=== PATIENT | female | born 1955 | race Caucasian/White ===

== ENCOUNTER → 2016-09-16 | Outpatient (CLI) | payer BC | LOC: MW.CHFP 07:30 | PROVIDERS: ATTEND Physician Assistant | DX: E11.9 Type 2 diabetes mellitus without complications (principal) | CPT/HCPCS: 36415; 83036 ==

== ENCOUNTER 2017-10-17 02:24 | Emergency (ER) | payer BC ==
[2017-10-17] MEDS ORDERED: methylPREDNISolone Sodium Succinate 125 MG/2 ML SDV IM ONE (03:07)
[2017-10-17] MEDS ORDERED: diphenhydrAMINE 50 MG Cap PO ONE (03:08)
[2017-10-17] MEDS ORDERED: Famotidine 20 MG Tab PO ONE (03:08)
--- NOTE | 2017-10-17 03:09 | EDM.PDOC ---
ED HPI GENERAL MEDICAL PROBLEM - General Chief Complaint: Skin Complaint Stated Complaint: RASH Time Seen by Provider: 10/17/17 03:09 Source of Information: Reports: Patient - History of Present Illness INITIAL COMMENTS - FREE TEXT/NARRATIVE: HISTORY AND PHYSICAL: History of present illness: [Patient presents with urticarial rash which began earlier today she has been on an antibiotic for a week due to a folliculitis on her right cheek this is resolved She is on her last day of the antibiotic so we'll be stopping today anyway is unclear if this is the cause there are no other new dietary changes or clothing soaps etc. She has urticarial rash in inguinal folds across her abdomen as well as her breasts and on the backs of her calves small areas which is quite itchy and bothersome for the patient unable to sleep No fever nausea vomiting chills sweats lip swelling tongue swelling or oral pharyngeal edema ] Review of systems: As per history of present illness and below otherwise all systems reviewed and negative. Past medical history: As per history of present illness and as reviewed below otherwise noncontributory. Surgical history: As per history of present illness and as reviewed below otherwise noncontributory. Social history: No reported history of drug or alcohol abuse. Family history: As per history of present illness and as reviewed below otherwise noncontributory. Physical exam: HEENT: Atraumatic, normocephalic, pupils reactive, negative for conjunctival pallor or scleral icterus, mucous membranes moist, throat clear, neck supple, nontender, trachea midline. Lungs: Clear to auscultation, breath sounds equal bilaterally, chest nontender. Heart: S1S2, regular, negative for clicks, rubs, or JVD. Abdomen: Soft, nondistended, nontender. Negative for masses or hepatosplenomegaly. Negative for costovertebral tenderness. Pelvis: Stable nontender. Genitourinary: Deferred. Rectal: Deferred. Extremities: Atraumatic, negative for cords or calf pain. Neurovascular unremarkable. Neuro: Awake, alert, oriented. Cranial nerves II through XII unremarkable. Cerebellum unremarkable. Motor and sensory unremarkable throughout. Exam nonfocal. Skin as per history of present illness Diagnostics: [Clinical Patient refused lab Therapeutics: [Solu-Medrol 125 mg IM Benadryl 50 mg by mouth Famotidine 20 mg by mouth] Impression: [Urticarial rash] Definitive disposition and diagnosis as appropriate pending reevaluation and review of above. Generalized Pain Score (Numeric/FACES): 9 - Related Data Allergies Allergy/AdvReac Type Severity Reaction Status Date / Time No Known Allergies Allergy Verified 10/17/17 02:37 Home Meds: Home Meds Canagliflozin [Invokana] 300 mg PO DAILY 04/23/15 [History] Lisinopril 5 mg PO DAILY 04/23/15 [History] Venlafaxine [Effexor XR] 150 mg PO DAILY 04/23/15 [History] atorvaSTATin Calcium [Atorvastatin Calcium] 40 mg PO DAILY 04/23/15 [History] metFORMIN [Glucophage] 1,000 mg PO BIDMEALS 04/23/15 [History] Liraglutide [Victoza 3-Remy] mg .XX 10/17/17 [History] Past Medical History Cardiovascular History: Reports: High Cholesterol - Past Surgical History Other HEENT Surgeries/Procedures: esophogeal polypectomy Social & Family History - Family History Family Medical History: Noncontributory - Tobacco Use Smoking Status *Q: Never Smoker Second Hand Smoke Exposure: No - Caffeine Use Caffeine Use: Reports: Coffee - Recreational Drug Use Recreational Drug Use: No ED ROS GENERAL - Review of Systems Review Of Systems: ROS reveals no pertinent complaints other than HPI. ED EXAM, SKIN/RASH Exam: See Below Course - Vital Signs Last Recorded V/S: Last Vital Signs Temp 98.0 F 10/17/17 02:34 Pulse 80 10/17/17 02:34 Resp 20 10/17/17 02:34 BP 122/59 L 10/17/17 02:34 Pulse Ox 99 10/17/17 02:34 - Orders/Labs/Meds Meds: Medications Discontinued Medications Generic Name Dose Route Start Last Admin Trade Name Freq PRN Reason Stop Dose Admin Diphenhydramine HCl 50 mg 10/17/17 03:08 10/17/17 03:15 Benadryl PO 10/17/17 03:09 50 mg ONETIME ONE Administration Famotidine 20 mg 10/17/17 03:08 10/17/17 03:16 Pepcid PO 10/17/17 03:09 20 mg ONETIME ONE Administration Methylprednisolone Sodium Succinate 125 mg 10/17/17 03:07 10/17/17 03:16 Solu-Medrol IM 10/17/17 03:08 125 mg ONETIME ONE Administration Departure - Departure Time of Disposition: 03:55 Disposition: Home, Self-Care 01 Condition: Good Clinical Impression: Urticarial rash - Discharge Information Referrals: Marlon Oakley PA [Primary Care Provider] - Forms: ED Department Discharge Additional Instructions: Benadryl 50 mg every 4-6 hours by mouth as needed Zantac 150 milligrams by mouth twice daily as needed Medrol Dosepak as directed Follow-up with primary care in 2 weeks sooner as needed Consider allergy testing Return to emergency room if symptoms persist or worsen or new concerning symptoms develop\ The following information is given to patients seen in the emergency department who are being discharged to home. This information is to outline your options for follow-up care. We provide all patients seen in our emergency department with a follow-up referral. The need for follow-up, as well as the timing and circumstances, are variable depending upon the specifics of your emergency department visit. If you don't have a primary care physician on staff, we will provide you with a referral. We always advise you to contact your personal physician following an emergency department visit to inform them of the circumstance of the visit and for follow-up with them and/or the need for any referrals to a consulting specialist. The emergency department will also refer you to a specialist when appropriate. This referral assures that you have the opportunity for follow-up care with a specialist. All of these measure are taken in an effort to provide you with optimal care, which includes your follow-up. Under all circumstances we always encourage you to contact your private physician who remains a resource for coordinating your care. When calling for follow-up care, please make the office aware that this follow-up is from your recent emergency room visit. If for any reason you are refused follow-up, please contact the [facility] emergency department at and asked to speak to the emergency department charge nurse.
[2017-10-17 04:26] VITALS: BP 110/57
== END 2017-10-17 04:00 | disposition home or self-care (01) ==
LOC: MW.ED 02:24
DX: L50.9 Urticaria, unspecified (principal); E78.00 Pure hypercholesterolemia, unspecified; Z79.899 Other long term (current) drug therapy; Z79.84 Long term (current) use of oral hypoglycemic drugs
CPT/HCPCS: 96372; 99283; A9270; J2930

== ENCOUNTER 2017-10-19 06:40 | Inpatient (IN) | payer BC ==
[2017-10-19] MEDS ORDERED: Sodium Chloride 0.9% 1,000 ML IV ONE (06:46)
--- NOTE | 2017-10-19 06:49 | EDM.PDOC ---
<Jean Claude Monroe - Last Filed: 10/19/17 07:07> ED HPI GENERAL MEDICAL PROBLEM - General Chief Complaint: Allergic Reaction Stated Complaint: ALLERGIC REACTION Time Seen by Provider: 10/19/17 06:48 Source of Information: Reports: Patient - History of Present Illness INITIAL COMMENTS - FREE TEXT/NARRATIVE: HISTORY AND PHYSICAL: History of present illness: [ Patient presents to ER by private vehicle She was seen a couple days prior with urticarial rash on calves small area on abdomen and breasts, treated with Solu-Medrol at that time provided a Medrol Dosepak advised to take Benadryl and Zantac [id number] she states she has been doing this rash has spread to include limbs trunk neck she states it feels as if her throat is swelling on one side, her blood pressure is known to be lower than previous on arrival at 90 over 70 and tachycardic she does have faint stridor while listening to her neck is able to speak in full sentences ] Review of systems: As per history of present illness and below otherwise all systems reviewed and negative. Past medical history: As per history of present illness and as reviewed below otherwise noncontributory. Surgical history: As per history of present illness and as reviewed below otherwise noncontributory. Social history: No reported history of drug or alcohol abuse. Family history: As per history of present illness and as reviewed below otherwise noncontributory. Physical exam: HEENT: Atraumatic, normocephalic, pupils reactive, negative for conjunctival pallor or scleral icterus, mucous membranes moist, throat clear, neck supple, nontender, trachea midline. Faint stridor Lungs: Clear to auscultation, breath sounds equal bilaterally, chest nontender. Heart: S1S2, regular, negative for clicks, rubs, or JVD. Abdomen: Soft, nondistended, nontender. Negative for masses or hepatosplenomegaly. Negative for costovertebral tenderness. Pelvis: Stable nontender. Genitourinary: Deferred. Rectal: Deferred. Extremities: Atraumatic, negative for cords or calf pain. Neurovascular unremarkable. Neuro: Awake, alert, oriented. Cranial nerves II through XII unremarkable. Cerebellum unremarkable. Motor and sensory unremarkable throughout. Exam nonfocal. Diagnostics: [EDC CMP UA ] Therapeutics: [Liter normal saline bolus Solu-Medrol 125 mg IV Benadryl 50 mg IV Famotidine 20 mg by mouth epinephrine 0.5 mg IM Impression: Hypotension [ dermatitis ] Definitive disposition and diagnosis as appropriate pending reevaluation and review of above. skin Pain Score (Numeric/FACES): 10 - Related Data Allergies Allergy/AdvReac Type Severity Reaction Status Date / Time No Known Allergies Allergy Verified 10/19/17 06:49 Home Meds: Home Meds Canagliflozin [Invokana] 300 mg PO DAILY 04/23/15 [History] Lisinopril 5 mg PO DAILY 04/23/15 [History] Venlafaxine [Effexor XR] 150 mg PO DAILY 04/23/15 [History] atorvaSTATin Calcium [Atorvastatin Calcium] 40 mg PO DAILY 04/23/15 [History] metFORMIN [Glucophage] 1,000 mg PO BIDMEALS 04/23/15 [History] Liraglutide [Victoza 3-Remy] mg .XX 10/17/17 [History] Past Medical History Cardiovascular History: Reports: High Cholesterol - Past Surgical History Other HEENT Surgeries/Procedures: esophogeal polypectomy Social & Family History - Family History Family Medical History: Noncontributory - Caffeine Use Caffeine Use: Reports: Coffee Course - Vital Signs Last Recorded V/S: Last Vital Signs Temp 36.3 C 10/19/17 06:40 Pulse 117 H 10/19/17 08:03 Resp 18 10/19/17 08:03 BP 123/69 10/19/17 08:03 Pulse Ox 99 10/19/17 08:03 - Orders/Labs/Meds Orders: Active Orders 24 hr Category Date Time Status UA W/MICROSCOPIC [URIN] Stat Lab 10/19/17 08:00 Ordered Labs: Laboratory Tests 10/19/17 10/19/17 10/19/17 Range/Units 06:55 06:55 08:00 WBC 12.64 H (4.0-11.0) K/uL RBC 5.45 (4.30-5.90) M/uL Hgb 16.8 H (12.0-16.0) g/dL Hct 49.3 H (36.0-46.0) % MCV 90.5 (80.0-98.0) fL MCH 30.8 (27.0-32.0) pg MCHC 34.1 (31.0-37.0) g/dL RDW Std Deviation 46.2 (28.0-62.0) fl RDW Coeff of Jt 14 (11.0-15.0) % Plt Count 342 (150-400) K/uL MPV 11.30 (7.40-12.00) fL Neut % (Auto) 83.8 H (48.0-80.0) % Lymph % (Auto) 13.8 L (16.0-40.0) % [place] % (Auto) 2.1 (0.0-15.0) % Eos % (Auto) 0.2 (0.0-7.0) % Baso % (Auto) 0.1 (0.0-1.5) % Neut # (Auto) 10.6 H (1.4-5.7) K/uL Lymph # (Auto) 1.7 (0.6-2.4) K/uL [place] # (Auto) 0.3 (0.0-0.8) K/uL Eos # (Auto) 0.0 (0.0-0.7) K/uL Baso # (Auto) 0.0 (0.0-0.1) K/uL Nucleated RBC % 0.0 /100WBC Nucleated RBCs # 0 K/uL Sodium 131 L (136-145) mmol/L Potassium 5.5 H (3.5-5.1) mmol/L Chloride 99 (98-107) mmol/L Carbon Dioxide 21.3 (21.0-32.0) mmol/L BUN 36 H (7.0-18.0) mg/dL Creatinine 1.0 (0.6-1.0) mg/dL Est Cr Clr Drug Dosing 41.90 mL/min Estimated GFR (MDRD) 56.2 ml/min Glucose 277 H (74-106) mg/dL Calcium 9.2 (8.5-10.1) mg/dL Total Bilirubin 0.7 (0.2-1.0) mg/dL AST 40 H (15-37) IU/L ALT 22 (14-63) IU/L Alkaline Phosphatase 58 (46-116) U/L Total Protein 7.6 (6.4-8.2) g/dL Albumin 3.9 (3.4-5.0) g/dL Globulin 3.7 H (2.0-3.5) g/dL Albumin/Globulin Ratio 1.1 L (1.3-2.8) Urine Color YELLOW Urine Appearance CLEAR Urine pH 5.0 (5.0-8.0) Ur Specific [place] 1.015 (1.001-1.035) Urine Protein NEGATIVE (NEGATIVE) mg/dL Urine Glucose (UA) >=1000 (NEGATIVE) mg/dL Urine Ketones 15 H (NEGATIVE) mg/dL Urine Occult Blood NEGATIVE (NEGATIVE) Urine Nitrite NEGATIVE (NEGATIVE) Urine Bilirubin NEGATIVE (NEGATIVE) Urine Urobilinogen 0.2 (<2.0) EU/dL Ur Leukocyte Esterase NEGATIVE (NEGATIVE) Urine RBC 0-2 (0-2/HPF) Urine WBC 0-2 (0-5/HPF) Ur Epithelial Cells FEW (NONE-FEW) Urine Bacteria RARE (NEGATIVE) Meds: Medications Discontinued Medications Generic Name Dose Route Start Last Admin Trade Name Freq PRN Reason Stop Dose Admin Diphenhydramine HCl 50 mg 10/19/17 07:05 10/19/17 07:35 Benadryl IVPUSH 10/19/17 07:06 50 mg ONETIME ONE Administration Epinephrine HCl 0.5 mg 10/19/17 06:50 10/19/17 06:55 Adrenalin IM 10/19/17 06:51 0.5 mg ONETIME ONE Administration Famotidine 20 mg 10/19/17 07:06 10/19/17 07:35 Pepcid PO 10/19/17 07:07 20 mg ONETIME ONE Administration Sodium Chloride 1,000 mls @ 999 mls/hr 10/19/17 06:46 10/19/17 06:56 Normal Saline IV 10/19/17 07:46 999 mls/hr STAT ONE Administration Methylprednisolone Sodium Succinate 125 mg 10/19/17 06:53 10/19/17 07:03 Solu-Medrol IVPUSH 10/19/17 06:54 125 mg ONETIME ONE Administration Ondansetron HCl Confirm 10/19/17 07:21 10/19/17 07:28 Zofran Administered 10/19/17 07:22 Not Given Dose 4 mg .ROUTE .STK-MED ONE Ondansetron HCl 4 mg 10/19/17 07:25 10/19/17 07:30 Zofran IVPUSH 10/19/17 07:26 4 mg ONETIME ONE Administration Departure - Departure Disposition: Refer to Observation Clinical Impression: Acute allergic reaction - Discharge Information Referrals: PCP,None [Primary Care Provider] - <Quentin Ling - Last Filed: 10/19/17 08:39> ED HPI GENERAL MEDICAL PROBLEM - History of Present Illness INITIAL COMMENTS - FREE TEXT/NARRATIVE: Patient has had an unremarkable emergency department course vital signs have improved and remained stable she is without difficulty swallowing or breathing patient has a improved he urticarial rash I discussed with patient admission for observation she is in agreement case was discussed with hospitalist. ED ROS ALLERGIC REACTION - Review of Systems Review Of Systems: ROS reveals no pertinent complaints other than HPI. ED EXAM GENERAL NO PERIP PULSE - Physical Exam Exam: See Below (See dictation) Departure - Departure Time of Disposition: 08:39 Condition: Good
[2017-10-19] MEDS ORDERED: EPINEPHrine 1 MG/ML SDV IM ONE (06:50)
[2017-10-19] MEDS ORDERED: methylPREDNISolone Sodium Succinate 125 MG/2 ML SDV IVPUSH ONE ×2 (06:53→16:54)
[2017-10-19] MEDS ORDERED: diphenhydrAMINE 50 MG/ML SDV IVPUSH ONE (07:05)
[2017-10-19] MEDS ORDERED: Famotidine 20 MG Tab PO ONE (07:06)
[2017-10-19] MEDS ORDERED: Ondansetron 4 MG/2 ML SDV ONE (07:21)
[2017-10-19] MEDS ORDERED: Ondansetron 4 MG/2 ML SDV IVPUSH ONE (07:25)
[2017-10-19] MEDS ORDERED: Albuterol/Ipratropium 3.0-0.5 MG/3 ML Neb Soln NEB PRN (09:32)
[2017-10-19] MEDS ORDERED: Acetaminophen 325 MG Tab PO PRN (09:32)
[2017-10-19] MEDS ORDERED: Sodium Chloride 0.9% 2.5 ML Syringe FLUSH PRN (09:32)
[2017-10-19] MEDS ORDERED: Sodium Chloride 0.9% 10 ML Syringe FLUSH PRN (09:32)
[2017-10-19] MEDS: Lactated Ringers 1,000 ML IV SCH ×2 (10:36→18:30)
[2017-10-19] MEDS: methylPREDNISolone Sodium Succinate 40 MG/1 ML SDV IVPUSH SCH ×2 (10:36→16:26)
[2017-10-19] MEDS: diphenhydrAMINE 50 MG/ML SDV IVPUSH PRN ×2 (13:33→18:30)
[2017-10-19] MEDS: metFORMIN 500 MG Tab.ER PO SCH (16:26)
[2017-10-19] MEDS ORDERED: ZINC OXIDE TOP PRN (16:44)
[2017-10-19] MEDS ORDERED: MENTHOL TOP PRN (16:44)
[2017-10-19] MEDS ORDERED: Doxepin 25 MG Cap PO ONE (16:54)
[2017-10-19] MEDS: Venlafaxine 75 MG Cap.ER PO SCH (17:56)
--- NOTE | 2017-10-19 18:03 | PCM.HP ---
H&P History of Present Illness - General Date of Service: 10/19/17 Admit Problem/Dx: Admission Diagnosis/Problem Admission Diagnosis/Problem Anaphylactic reaction Source of Information: Patient - History of Present Illness Initial Comments - Free Text/Narative: Patient 61 years old female presented to Emergency room because she broke up into rash that started on night and was getting worse.she was seen in Er on Friday and was discharged home with Benadryl . In ER she was given solumedrol iv one dose and her rash felt better . she had some improvement in her rash on Friday , but the rash got worse on Friday and she had swelling of her throat and lips. She was at home on RUSSELL inhibitors, lisinopril and she just completed on a course of antibiotic does not know the name of it , which she received for 10 days for a facial infection after she pulled a facial hair with a tweezer Onset of Symptoms: Reports: Today Duration of Symptoms: Reports: Day(s): skin Pain Score (Numeric/FACES): 10 - Related Data Allergies/Adverse Reactions: Allergies Allergy/AdvReac Type Severity Reaction Status Date / Time Penicillins Allergy Hives Verified 10/19/17 18:13 Home Medications: Home Meds Canagliflozin [Invokana] 300 mg PO DAILY 04/23/15 [History] Lisinopril 5 mg PO DAILY 04/23/15 [History] Venlafaxine [Effexor XR] 150 mg PO DAILY 04/23/15 [History] atorvaSTATin Calcium [Atorvastatin Calcium] 40 mg PO BEDTIME 04/23/15 [History] metFORMIN [Glucophage] 1,000 mg PO BIDMEALS 04/23/15 [History] Liraglutide [Victoza 3-Remy] 1.8 mg SUBCUT DAILY 10/17/17 [History] methylPREDNISolone [Methylprednisolone] 4 mg PO 10/19/17 [History] Past Medical History Cardiovascular History: Reports: High Cholesterol Musculoskeletal History: Reports: Other (See Below) Other Musculoskeletal History: right hip pain Psychiatric History: Reports: Anxiety, Depression Endocrine/Metabolic History: Reports: Diabetes, Type II - Past Surgical History Other HEENT Surgeries/Procedures: esophogeal polypectomy Female Surgical History: Reports: Section, Hysterectomy Musculoskeletal Surgical History: Reports: Shoulder Surgery Social & Family History - Family History Family Medical History: Noncontributory - Tobacco Use Smoking Status *Q: Former Smoker Years of Tobacco use: 30 Used Tobacco, but Quit: Yes Month/Year Tobacco Last Used: 2010 - Caffeine Use Caffeine Use: Reports: Coffee - Recreational Drug Use Recreational Drug Use: No H&P Review of Systems - Review of Systems: Review Of Systems: See Below General: Reports: No Symptoms HEENT: Reports: No Symptoms Pulmonary: Reports: Shortness of Breath Cardiovascular: Reports: No Symptoms Gastrointestinal: Reports: No Symptoms Genitourinary: Reports: No Symptoms Musculoskeletal: Reports: No Symptoms Skin: Reports: Rash (maculo-papular rash) Psychiatric: Reports: No Symptoms Neurological: Reports: No Symptoms Hematologic/Lymphatic: Reports: No Symptoms Exam - Exam Exam: See Below - Vital Signs Vital Signs: Last Vital Signs Temp 98.5 F 10/19/17 16:00 Pulse 112 H 10/19/17 16:00 Resp 22 H 10/19/17 16:00 BP 124/67 10/19/17 16:00 Pulse Ox 98 10/19/17 16:00 Weight: 138 lb 3.677 oz - Exam General: Alert, Oriented HEENT: Conjunctiva Clear Neck: Supple, Trachea Midline, Full Range of Motion Lungs: Clear to Auscultation, Normal Respiratory Effort Cardiovascular: Regular Rate, Regular Rhythm, Tachycardia GI/Abdominal Exam: Normal Bowel Sounds, Soft, Non-Tender, No Organomegaly (Female) Exam: Normal External Exam Rectal (Female) Exam: Normal Exam Back Exam: Normal Inspection Extremities: Normal Inspection Skin: Warm, Dry, Intact, Rash (facial , chest back , legs arms , buttocks) Skin Alteration Location (Drawings Not To Scale): 1 - rash all over the body Neurological: Cranial Nerves Intact Neuro Extensive - Mental Status: Alert, Oriented x3 Neuro Extensive - Motor, Sensory, Reflexes: CN II-XII Intact Psychiatric: Alert, Normal Affect - Patient Data Lab Results Last 24 hrs: Laboratory Results - last 24 hr 10/19/17 10/19/17 10/19/17 Range/Units 06:55 06:55 08:00 WBC 12.64 H (4.0-11.0) K/uL RBC 5.45 (4.30-5.90) M/uL Hgb 16.8 H (12.0-16.0) g/dL Hct 49.3 H (36.0-46.0) % MCV 90.5 (80.0-98.0) fL MCH 30.8 (27.0-32.0) pg MCHC 34.1 (31.0-37.0) g/dL RDW Std Deviation 46.2 (28.0-62.0) fl RDW Coeff of Jt 14 (11.0-15.0) % Plt Count 342 (150-400) K/uL MPV 11.30 (7.40-12.00) fL Neut % (Auto) 83.8 H (48.0-80.0) % Lymph % (Auto) 13.8 L (16.0-40.0) % [place] % (Auto) 2.1 (0.0-15.0) % Eos % (Auto) 0.2 (0.0-7.0) % Baso % (Auto) 0.1 (0.0-1.5) % Neut # (Auto) 10.6 H (1.4-5.7) K/uL Lymph # (Auto) 1.7 (0.6-2.4) K/uL [place] # (Auto) 0.3 (0.0-0.8) K/uL Eos # (Auto) 0.0 (0.0-0.7) K/uL Baso # (Auto) 0.0 (0.0-0.1) K/uL Nucleated RBC % 0.0 /100WBC Nucleated RBCs # 0 K/uL Sodium 131 L (136-145) mmol/L Potassium 5.5 H (3.5-5.1) mmol/L Chloride 99 (98-107) mmol/L Carbon Dioxide 21.3 (21.0-32.0) mmol/L BUN 36 H (7.0-18.0) mg/dL Creatinine 1.0 (0.6-1.0) mg/dL Est Cr Clr Drug Dosing 41.90 mL/min Estimated GFR (MDRD) 56.2 ml/min Glucose 277 H (74-106) mg/dL Calcium 9.2 (8.5-10.1) mg/dL Total Bilirubin 0.7 (0.2-1.0) mg/dL AST 40 H (15-37) IU/L ALT 22 (14-63) IU/L Alkaline Phosphatase 58 (46-116) U/L Total Protein 7.6 (6.4-8.2) g/dL Albumin 3.9 (3.4-5.0) g/dL Globulin 3.7 H (2.0-3.5) g/dL Albumin/Globulin Ratio 1.1 L (1.3-2.8) Urine Color YELLOW Urine Appearance CLEAR Urine pH 5.0 (5.0-8.0) Ur Specific [place] 1.015 (1.001-1.035) Urine Protein NEGATIVE (NEGATIVE) mg/dL Urine Glucose (UA) >=1000 (NEGATIVE) mg/dL Urine Ketones 15 H (NEGATIVE) mg/dL Urine Occult Blood NEGATIVE (NEGATIVE) Urine Nitrite NEGATIVE (NEGATIVE) Urine Bilirubin NEGATIVE (NEGATIVE) Urine Urobilinogen 0.2 (<2.0) EU/dL Ur Leukocyte Esterase NEGATIVE (NEGATIVE) Urine RBC 0-2 (0-2/HPF) Urine WBC 0-2 (0-5/HPF) Ur Epithelial Cells FEW (NONE-FEW) Urine Bacteria RARE (NEGATIVE) Result Diagrams: 10/19/17 06:55 10/19/17 06:55 - Problem List (1) Anaphylactic reaction SNOMED Code(s): 57401504 ICD Code: T78.2XXA - ANAPHYLACTIC SHOCK, UNSPECIFIED, INITIAL ENCOUNTER Status: Acute Current Visit: Yes (2) Urticaria due to drug allergy SNOMED Code(s): 60220645 ICD Code: L50.0 - ALLERGIC URTICARIA Status: Acute Current Visit: Yes (3) Anaphylactic shock SNOMED Code(s): 827019834 ICD Code: T78.2XXA - ANAPHYLACTIC SHOCK, UNSPECIFIED, INITIAL ENCOUNTER Status: Acute Current Visit: Yes (4) Urticarial rash SNOMED Code(s): 923738535 ICD Code: L50.9 - URTICARIA, UNSPECIFIED Status: Acute Current Visit: No (5) Diabetes mellitus SNOMED Code(s): 46922499 ICD Code: E11.9 - TYPE 2 DIABETES MELLITUS WITHOUT COMPLICATIONS Status: Acute Current Visit: Yes (6) Hypertension SNOMED Code(s): 68560590 ICD Code: I10 - ESSENTIAL (PRIMARY) HYPERTENSION Status: Acute Current Visit: Yes Problem List Initiated/Reviewed/Updated: Yes Orders Last 24hrs: Active Orders 24 hr Category Date Time Status Patient Status [ADT] Stat ADT 10/19/17 08:39 Active Transfer Patient (Change bed) [ADT] Routine ADT 10/19/17 17:58 Ordered Blood Glucose Check, Bedside [RC] QIDACANDBED Care 10/19/17 09:32 Active Oxygen Therapy [RC] PRN Care 10/19/17 09:32 Active Pulse Oximetry [RC] CONTINUOUS Care 10/19/17 09:32 Active RT Aerosol Therapy [RC] ASDIRECTED Care 10/19/17 09:35 Active Transplant Case Manager Discontinue [Cardiac Monitoring Care 10/19/17 15:45 Active Discontinue] [RC] Click to Edit Telemetry Monitoring [Cardiac Monitoring] [RC] Q8H Care 10/19/17 09:44 Active Up ad [place] [RC] ASDIRECTED Care 10/19/17 09:32 Active Vital Signs [RC] Q4H Care 10/19/17 09:32 Active [employer] Diet [DIET] Diet 10/19/17 Lunch Active BASIC METABOLIC PANEL,BMP [CHEM] AM Lab 10/20/17 05:11 Ordered BASIC METABOLIC PANEL,BMP [CHEM] AM Lab 10/21/17 05:11 Ordered BASIC METABOLIC PANEL,BMP [CHEM] AM Lab 10/22/17 05:11 Ordered CBC W/O DIFF,HEMOGRAM [HEME] AM Lab 10/20/17 05:11 Ordered CBC W/O DIFF,HEMOGRAM [HEME] AM Lab 10/21/17 05:11 Ordered CBC W/O DIFF,HEMOGRAM [HEME] AM Lab 10/22/17 05:11 Ordered UA W/MICROSCOPIC [URIN] Stat Lab 10/19/17 08:00 Ordered Acetaminophen [Tylenol] Med 10/19/17 09:32 Active 650 mg PO Q4H PRN Albuterol/Ipratropium [DuoNeb 3.0-0.5 MG/3 ML] Med 10/19/17 09:32 Active 3 ml NEB Q4HRRT PRN Lactated Ringers [Ringers, Lactated] 1,000 ml Med 10/19/17 09:45 Active IV ASDIRECTED Menthol/Zinc Oxide [Gold Schultz Medicated Body Pwd] Med 10/19/17 16:44 Active 1 gm TOP BID PRN Patient's Own Medication [Ptom] Med 10/20/17 09:00 Active 1 each PO DAILY Patient's Own Medication [Ptom] Med 10/20/17 09:00 Active 1 each SUBCUT DAILY Sodium Chloride 0.9% [Saline Flush] Med 10/19/17 09:32 Active 10 ml FLUSH ASDIRECTED PRN Sodium Chloride 0.9% [Saline Flush] Med 10/19/17 09:32 Active 2.5 ml FLUSH ASDIRECTED PRN Venlafaxine [Effexor XR] Med 10/19/17 17:30 Active 150 mg PO DAILY atorvaSTATin [Lipitor] Med 10/19/17 21:00 Active 40 mg PO BEDTIME diphenhydrAMINE [Benadryl] Med 10/19/17 09:36 Active 50 mg IVPUSH Q6H PRN metFORMIN [Glucophage XR] Med 10/19/17 17:00 Active 1,000 mg PO BIDMEALS methylPREDNISolone Sod Succ [Solu-MEDROL] Med 10/19/17 09:45 Active 60 mg IVPUSH Q6H Peripheral IV Insertion Adult [OM.PC] Routine Oth 10/19/17 09:32 Ordered Sequential Compression Device [OM.PC] Per Unit Routine Oth 10/19/17 09:34 Ordered Resuscitation Status Routine Resus Stat 10/19/17 09:32 Ordered Medication Orders Acetaminophen (Tylenol) 650 mg PO Q4H PRN PRN Reason: Pain (Mild 1-3)/fever Albuterol/Ipratropium (Duoneb 3.0-0.5 Mg/3 Ml) 3 ml NEB Q4HRRT PRN PRN Reason: Shortness Of Breath/wheezing Atorvastatin Calcium (Lipitor) 40 mg PO BEDTIME CHRISTINA Calamine/Phenol (Gold Schultz Medicated Body Pwd) 1 gm TOP BID PRN PRN Reason: Itching Diphenhydramine HCl (Benadryl) 50 mg IVPUSH Q6H PRN PRN Reason: urticaria Last Admin: 10/19/17 13:33 Dose: 50 mg Lactated Ringer's (Ringers, Lactated) 1,000 mls @ 125 mls/hr IV ASDIRECTED CHRISTINA Last Admin: 10/19/17 10:36 Dose: 125 mls/hr Metformin HCl (Glucophage Xr) 1,000 mg PO BIDMEALS [facility] Last Admin: 10/19/17 16:26 Dose: 1,000 mg Methylprednisolone Sodium Succinate (Solu-Medrol) 60 mg IVPUSH Q6H [facility] Last Admin: 10/19/17 16:26 Dose: 60 mg Admin: 10/19/17 10:36 Dose: 60 mg Canagliflozin [ (Invokana] 300 Mg) 1 each PO DAILY [facility] Liraglutide 1.8 Mg 1 each SUBCUT DAILY [facility] Sodium Chloride (Saline Flush) 10 ml FLUSH ASDIRECTED PRN PRN Reason: Keep Vein Open Sodium Chloride (Saline Flush) 2.5 ml FLUSH ASDIRECTED PRN PRN Reason: Keep Vein Open Venlafaxine HCl (Effexor Xr) 150 mg PO DAILY [facility] Last Admin: 10/19/17 17:56 Dose: 150 mg \ Patient Bp in ER was low 90/70 and she was tachycardic and had stridor at neck auscultation Assessment and plan Anaphylactic shock and urticarial rash/ angioedema - will d/c lisinopril , will start solumedrol 60 mg iv q 6 h , Benadryl 50 mg iv q 6 h , will give patient menthol and zn oxide for itching and Doxepine 25 mg one dose for itchyng. will need to get from pharmacy the antibiotics she was on and document allergy. Will also hold lisinopril as it is the most often agent for angioedema . For DM - will continue patient with insulin on sliding scale and victoza. DVt prof- heparin sq Gi prof - protonix
[2017-10-19] MEDS ORDERED: diphenhydrAMINE 50 MG/ML SDV ONE (19:34)
[2017-10-19] MEDS: methylPREDNISolone Sodium Succinate 125 MG/2 ML SDV IVPUSH SCH (19:39)
[2017-10-19] MEDS: Insulin Aspart 100 Units/ML 3 ML Pen SUBCUT SCH (21:00)
[2017-10-19] MEDS: diphenhydrAMINE 50 MG/ML SDV IVPUSH SCH (21:33)
[2017-10-19] MEDS: atorvaSTATin 40 MG Tab PO SCH (21:33)
[2017-10-20] MEDS: methylPREDNISolone Sodium Succinate 125 MG/2 ML SDV IVPUSH SCH ×4 (02:12→19:30)
[2017-10-20] MEDS: diphenhydrAMINE 50 MG/ML SDV IVPUSH SCH ×6 (02:12→22:22)
[2017-10-20] MEDS: Lactated Ringers 1,000 ML IV SCH ×3 (02:23→18:07)
[2017-10-20 05:30] LABS: CHLORIDE,CL 106 mmol/L (98-107); SODIUM,NA 138 mmol/L (136-145)
[2017-10-20] MEDS: metFORMIN 500 MG Tab.ER PO SCH ×2 (07:38→17:01)
[2017-10-20] MEDS: Triamcinolone Acetonide 0.1% Crm 80 GM Tube TOP PRN (07:39)
[2017-10-20] MEDS: Insulin Aspart 100 Units/ML 3 ML Pen SUBCUT SCH ×2 (07:56→20:39)
[2017-10-20] MEDS: Canagliflozin [Invokana] 300 MG PO SCH (08:00)
[2017-10-20] MEDS: Venlafaxine 75 MG Cap.ER PO SCH (08:00)
--- NOTE | 2017-10-20 08:18 | PCM.PN ---
<Baluch,Wilfrid - Last Filed: 10/20/17 08:14> - General Info Date of Service: 10/20/17 Admission Dx/Problem (Free Text): Admission Diagnosis/Problem Admission Diagnosis/Problem Anaphylactic reaction Subjective Update: Patient still complaining of diffuse itching. Rash is still present all over body including her oral mucosa. She denies any sob but still has some mild discomfort with swallowing. Functional Status: Reports: Pain Controlled, Tolerating Diet - Review of Systems General: Reports: No Symptoms HEENT: Reports: Other (odynophagia ) Pulmonary: Reports: No Symptoms Cardiovascular: Reports: No Symptoms Gastrointestinal: Reports: No Symptoms Genitourinary: Reports: No Symptoms Musculoskeletal: Reports: No Symptoms Skin: Reports: Pruritis, Rash Neurological: Reports: No Symptoms Psychiatric: Reports: No Symptoms - Patient Data Vitals - Most Recent: Last Vital Signs Temp 36.6 C 10/20/17 04:00 Pulse 112 H 10/19/17 16:00 Resp 16 10/20/17 07:00 BP 140/71 10/20/17 07:00 Pulse Ox 93 L 10/20/17 07:00 Weight - Most Recent: 138 lb 3.677 oz I&O - Last 24 Hours: Intake & Output 10/19/17 10/20/17 10/20/17 22:59 06:59 14:59 Intake Total 1880 1388 Output Total 1150 300 Balance 1880 238 -300 Lab Results Last 24 Hours: Laboratory Results - last 24 hr 10/19/17 10/19/17 10/19/17 Range/Units 08:00 11:34 16:30 WBC (4.0-11.0) K/uL RBC (4.30-5.90) M/uL Hgb (12.0-16.0) g/dL Hct (36.0-46.0) % MCV (80.0-98.0) fL MCH (27.0-32.0) pg MCHC (31.0-37.0) g/dL RDW Std Deviation (28.0-62.0) fl RDW Coeff of Jt (11.0-15.0) % Plt Count (150-400) K/uL MPV (7.40-12.00) fL Nucleated RBC % /100WBC Nucleated RBCs # K/uL Sodium (136-145) mmol/L Potassium (3.5-5.1) mmol/L Chloride (98-107) mmol/L Carbon Dioxide (21.0-32.0) mmol/L BUN (7.0-18.0) mg/dL Creatinine (0.6-1.0) mg/dL Est Cr Clr Drug Dosing mL/min Estimated GFR (MDRD) ml/min Glucose (74-106) mg/dL POC Glucose 193 H 232 H (60-110) mg/dL Calcium (8.5-10.1) mg/dL Urine Color YELLOW Urine Appearance CLEAR Urine pH 5.0 (5.0-8.0) Ur Specific [place] 1.015 (1.001-1.035) Urine Protein NEGATIVE (NEGATIVE) mg/dL Urine Glucose (UA) >=1000 (NEGATIVE) mg/dL Urine Ketones 15 H (NEGATIVE) mg/dL Urine Occult Blood NEGATIVE (NEGATIVE) Urine Nitrite NEGATIVE (NEGATIVE) Urine Bilirubin NEGATIVE (NEGATIVE) Urine Urobilinogen 0.2 (<2.0) EU/dL Ur Leukocyte Esterase NEGATIVE (NEGATIVE) Urine RBC 0-2 (0-2/HPF) Urine WBC 0-2 (0-5/HPF) Ur Epithelial Cells FEW (NONE-FEW) Urine Bacteria RARE (NEGATIVE) 10/19/17 10/20/17 10/20/17 Range/Units 21:54 04:55 04:55 WBC 11.51 H (4.0-11.0) K/uL RBC 4.22 L (4.30-5.90) M/uL Hgb 12.6 (12.0-16.0) g/dL Hct 38.4 (36.0-46.0) % MCV 91.0 (80.0-98.0) fL MCH 29.9 (27.0-32.0) pg MCHC 32.8 (31.0-37.0) g/dL RDW Std Deviation 46.5 (28.0-62.0) fl RDW Coeff of Jt 14 (11.0-15.0) % Plt Count 286 (150-400) K/uL MPV 10.70 (7.40-12.00) fL Nucleated RBC % 0.0 /100WBC Nucleated RBCs # 0 K/uL Sodium 138 (136-145) mmol/L Potassium 5.2 H (3.5-5.1) mmol/L Chloride 106 (98-107) mmol/L Carbon Dioxide 25.7 (21.0-32.0) mmol/L BUN 27 H (7.0-18.0) mg/dL Creatinine 0.7 (0.6-1.0) mg/dL Est Cr Clr Drug Dosing 59.85 mL/min Estimated GFR (MDRD) > 60.0 ml/min Glucose 186 H (74-106) mg/dL POC Glucose 180 H (60-110) mg/dL Calcium 8.4 L (8.5-10.1) mg/dL Urine Color Urine Appearance Urine pH (5.0-8.0) Ur Specific [place] (1.001-1.035) Urine Protein (NEGATIVE) mg/dL Urine Glucose (UA) (NEGATIVE) mg/dL Urine Ketones (NEGATIVE) mg/dL Urine Occult Blood (NEGATIVE) Urine Nitrite (NEGATIVE) Urine Bilirubin (NEGATIVE) Urine Urobilinogen (<2.0) EU/dL Ur Leukocyte Esterase (NEGATIVE) Urine RBC (0-2/HPF) Urine WBC (0-5/HPF) Ur Epithelial Cells (NONE-FEW) Urine Bacteria (NEGATIVE) 10/20/17 10/20/17 Range/Units 06:35 07:41 WBC (4.0-11.0) K/uL RBC (4.30-5.90) M/uL Hgb (12.0-16.0) g/dL Hct (36.0-46.0) % MCV (80.0-98.0) fL MCH (27.0-32.0) pg MCHC (31.0-37.0) g/dL RDW Std Deviation (28.0-62.0) fl RDW Coeff of Jt (11.0-15.0) % Plt Count (150-400) K/uL MPV (7.40-12.00) fL Nucleated RBC % /100WBC Nucleated RBCs # K/uL Sodium (136-145) mmol/L Potassium (3.5-5.1) mmol/L Chloride (98-107) mmol/L Carbon Dioxide (21.0-32.0) mmol/L BUN (7.0-18.0) mg/dL Creatinine (0.6-1.0) mg/dL Est Cr Clr Drug Dosing mL/min Estimated GFR (MDRD) ml/min Glucose (74-106) mg/dL POC Glucose 159 H 152 H (60-110) mg/dL Calcium (8.5-10.1) mg/dL Urine Color Urine Appearance Urine pH (5.0-8.0) Ur Specific [place] (1.001-1.035) Urine Protein (NEGATIVE) mg/dL Urine Glucose (UA) (NEGATIVE) mg/dL Urine Ketones (NEGATIVE) mg/dL Urine Occult Blood (NEGATIVE) Urine Nitrite (NEGATIVE) Urine Bilirubin (NEGATIVE) Urine Urobilinogen (<2.0) EU/dL Ur Leukocyte Esterase (NEGATIVE) Urine RBC (0-2/HPF) Urine WBC (0-5/HPF) Ur Epithelial Cells (NONE-FEW) Urine Bacteria (NEGATIVE) Med Orders - Current: Current Medications Acetaminophen (Tylenol) 650 mg PO Q4H PRN PRN Reason: Pain (Mild 1-3)/fever Albuterol/Ipratropium (Duoneb 3.0-0.5 Mg/3 Ml) 3 ml NEB Q4HRRT PRN PRN Reason: Shortness Of Breath/wheezing Atorvastatin Calcium (Lipitor) 40 mg PO BEDTIME [facility] Last Admin: 10/19/17 21:33 Dose: 40 mg Calamine/Phenol (Gold Schultz Medicated Body Pwd) 1 gm TOP BID PRN PRN Reason: Itching Diphenhydramine HCl (Benadryl) 50 mg IVPUSH Q4H [facility] Last Admin: 10/20/17 06:16 Dose: 50 mg Lactated Ringer's (Ringers, Lactated) 1,000 mls @ 125 mls/hr IV ASDIRECTED [facility] Last Admin: 10/20/17 02:23 Dose: 125 mls/hr Insulin Aspart (Novolog) 0 unit SUBCUT ACBREAKFASTANDBED [facility]; Protocol Last Admin: 10/20/17 07:56 Dose: 2 unit Metformin HCl (Glucophage Xr) 1,000 mg PO BIDMEALS [facility] Last Admin: 10/20/17 07:38 Dose: 1,000 mg Methylprednisolone Sodium Succinate (Solu-Medrol) 125 mg IVPUSH Q6H [facility] Last Admin: 10/20/17 07:38 Dose: 125 mg Canagliflozin [ (Invokana] 300 Mg) 1 each PO DAILY [facility] Last Admin: 10/20/17 08:00 Dose: 1 each Liraglutide 1.8 Mg 1 each SUBCUT DAILY [facility] Last Admin: 10/20/17 08:10 Dose: Not Given Sodium Chloride (Saline Flush) 10 ml FLUSH ASDIRECTED PRN PRN Reason: Keep Vein Open Sodium Chloride (Saline Flush) 2.5 ml FLUSH ASDIRECTED PRN PRN Reason: Keep Vein Open Triamcinolone Acetonide (Kenalog 0.1% Crm) 0 gm TOP BID PRN PRN Reason: itching , rash Last Admin: 10/20/17 07:39 Dose: 1 dose Venlafaxine HCl (Effexor Xr) 150 mg PO DAILY [facility] Last Admin: 10/20/17 08:00 Dose: 150 mg Discontinued Medications Diphenhydramine HCl (Benadryl) 50 mg IVPUSH ONETIME ONE Stop: 10/19/17 07:06 Last Admin: 10/19/17 07:35 Dose: 50 mg Diphenhydramine HCl (Benadryl) 50 mg IVPUSH Q6H PRN PRN Reason: urticaria Last Admin: 10/19/17 18:30 Dose: 50 mg Diphenhydramine HCl (Benadryl) Confirm Administered Dose 50 mg .ROUTE .STK-MED ONE Stop: 10/19/17 19:35 Last Admin: 10/19/17 19:42 Dose: Not Given Doxepin HCl (Sinequan) 25 mg PO ONETIME ONE Stop: 10/19/17 16:55 Last Admin: 10/19/17 18:03 Dose: 25 mg Epinephrine HCl (Adrenalin) 0.5 mg IM ONETIME ONE Stop: 10/19/17 06:51 Last Admin: 10/19/17 06:55 Dose: 0.5 mg Famotidine (Pepcid) 20 mg PO ONETIME ONE Stop: 10/19/17 07:07 Last Admin: 10/19/17 07:35 Dose: 20 mg Sodium Chloride (Normal Saline) 1,000 mls @ 999 mls/hr IV STAT ONE Stop: 10/19/17 07:46 Last Admin: 10/19/17 06:56 Dose: 999 mls/hr Methylprednisolone Sodium Succinate (Solu-Medrol) 125 mg IVPUSH ONETIME ONE Stop: 10/19/17 06:54 Last Admin: 10/19/17 07:03 Dose: 125 mg Methylprednisolone Sodium Succinate (Solu-Medrol) 60 mg IVPUSH Q6H [facility] Last Admin: 10/19/17 16:26 Dose: 60 mg Methylprednisolone Sodium Succinate (Solu-Medrol) 125 mg IVPUSH ONETIME ONE Stop: 10/19/17 16:55 Last Admin: 10/19/17 17:23 Dose: Not Given Ondansetron HCl (Zofran) Confirm Administered Dose 4 mg .ROUTE .STK-MED ONE Stop: 10/19/17 07:22 Last Admin: 10/19/17 07:28 Dose: Not Given Ondansetron HCl (Zofran) 4 mg IVPUSH ONETIME ONE Stop: 10/19/17 07:26 Last Admin: 10/19/17 07:30 Dose: 4 mg Venlafaxine HCl (Effexor Xr) 150 mg PO DAILY [facility] - Exam General: Alert, Oriented, Cooperative, No Acute Distress HEENT: Pupils Equal, Pupils Reactive Neck: Supple Lungs: Clear to Auscultation, Normal Respiratory Effort Cardiovascular: Regular Rate, Regular Rhythm GI/Abdominal Exam: Normal Bowel Sounds, Soft, Non-Tender, No Distention Back Exam: Normal Inspection Extremities: Normal Inspection, Normal Range of Motion, Non-Tender, No Pedal Edema, Normal Capillary Refill Skin: Rash Neurological: No New Focal Deficit Psy/Mental Status: Alert, Normal Affect, Normal Mood - Problem List Review Problem List Initiated/Reviewed/Updated: Yes - Plan Plan:: as per hospitalist <Carlota Barbosa - Last Filed: 10/21/17 00:14> - General Info Subjective Update: PATIENT RASH SIGNIFICANTLY IMPROVED , MILD THROAT DISCOMFORT WITH SWALLOWING. - Patient Data Vitals - Most Recent: Last Vital Signs Temp 98 F 10/20/17 20:00 Pulse 112 H 10/19/17 16:00 Resp 16 10/20/17 20:00 BP 115/46 L 10/20/17 20:00 Pulse Ox 93 L 10/20/17 20:00 I&O - Last 24 Hours: Intake & Output 10/20/17 10/20/17 10/20/17 06:59 14:59 22:59 Intake Total 1388 1957 1556 Output Total 1150 1100 490 Balance 391 733 9545 Lab Results Last 24 Hours: Laboratory Results - last 24 hr 10/19/17 10/20/17 10/20/17 Range/Units 21:54 04:55 04:55 WBC 11.51 H (4.0-11.0) K/uL RBC 4.22 L (4.30-5.90) M/uL Hgb 12.6 (12.0-16.0) g/dL Hct 38.4 (36.0-46.0) % MCV 91.0 (80.0-98.0) fL MCH 29.9 (27.0-32.0) pg MCHC 32.8 (31.0-37.0) g/dL RDW Std Deviation 46.5 (28.0-62.0) fl RDW Coeff of Jt 14 (11.0-15.0) % Plt Count 286 (150-400) K/uL MPV 10.70 (7.40-12.00) fL Nucleated RBC % 0.0 /100WBC Nucleated RBCs # 0 K/uL Sodium 138 (136-145) mmol/L Potassium 5.2 H (3.5-5.1) mmol/L Chloride 106 (98-107) mmol/L Carbon Dioxide 25.7 (21.0-32.0) mmol/L BUN 27 H (7.0-18.0) mg/dL Creatinine 0.7 (0.6-1.0) mg/dL Est Cr Clr Drug Dosing 59.85 mL/min Estimated GFR (MDRD) > 60.0 ml/min Glucose 186 H (74-106) mg/dL POC Glucose 180 H (60-110) mg/dL Calcium 8.4 L (8.5-10.1) mg/dL 10/20/17 10/20/17 Range/Units 06:35 07:41 WBC (4.0-11.0) K/uL RBC (4.30-5.90) M/uL Hgb (12.0-16.0) g/dL Hct (36.0-46.0) % MCV (80.0-98.0) fL MCH (27.0-32.0) pg MCHC (31.0-37.0) g/dL RDW Std Deviation (28.0-62.0) fl RDW Coeff of Jt (11.0-15.0) % Plt Count (150-400) K/uL MPV (7.40-12.00) fL Nucleated RBC % /100WBC Nucleated RBCs # K/uL Sodium (136-145) mmol/L Potassium (3.5-5.1) mmol/L Chloride (98-107) mmol/L Carbon Dioxide (21.0-32.0) mmol/L BUN (7.0-18.0) mg/dL Creatinine (0.6-1.0) mg/dL Est Cr Clr Drug Dosing mL/min Estimated GFR (MDRD) ml/min Glucose (74-106) mg/dL POC Glucose 159 H 152 H (60-110) mg/dL Calcium (8.5-10.1) mg/dL Med Orders - Current: Current Medications Acetaminophen (Tylenol) 650 mg PO Q4H PRN PRN Reason: Pain (Mild 1-3)/fever Albuterol/Ipratropium (Duoneb 3.0-0.5 Mg/3 Ml) 3 ml NEB Q4HRRT PRN PRN Reason: Shortness Of Breath/wheezing Atorvastatin Calcium (Lipitor) 40 mg PO BEDTIME [facility] Last Admin: 10/19/17 21:33 Dose: 40 mg Calamine/Phenol (Gold Schultz Medicated Body Pwd) 1 gm TOP BID PRN PRN Reason: Itching Diphenhydramine HCl (Benadryl) 50 mg IVPUSH Q4H [facility] Last Admin: 10/20/17 18:02 Dose: 50 mg Doxepin HCl (Sinequan) 25 mg PO BEDTIME ONE Stop: 10/20/17 21:01 Lactated Ringer's (Ringers, Lactated) 1,000 mls @ 125 mls/hr IV ASDIRECTED [facility] Last Admin: 10/20/17 18:07 Dose: 125 mls/hr Insulin Aspart (Novolog) 0 unit SUBCUT ACBREAKFASTANDBED [facility]; Protocol Last Admin: 10/20/17 07:56 Dose: 2 unit Metformin HCl (Glucophage Xr) 1,000 mg PO BIDMEALS [facility] Last Admin: 10/20/17 17:01 Dose: 1,000 mg Methylprednisolone Sodium Succinate (Solu-Medrol) 125 mg IVPUSH Q6H [facility] Last Admin: 10/20/17 19:30 Dose: 125 mg Canagliflozin [ (Invokana] 300 Mg) 1 each PO DAILY [facility] Last Admin: 10/20/17 08:00 Dose: 1 each Liraglutide 1.8 Mg 1 each SUBCUT DAILY [facility] Last Admin: 10/20/17 08:10 Dose: Not Given Sodium Chloride (Saline Flush) 10 ml FLUSH ASDIRECTED PRN PRN Reason: Keep Vein Open Sodium Chloride (Saline Flush) 2.5 ml FLUSH ASDIRECTED PRN PRN Reason: Keep Vein Open Triamcinolone Acetonide (Kenalog 0.1% Crm) 0 gm TOP BID PRN PRN Reason: itching , rash Last Admin: 10/20/17 07:39 Dose: 1 dose Venlafaxine HCl (Effexor Xr) 150 mg PO DAILY [facility] Last Admin: 10/20/17 08:00 Dose: 150 mg Discontinued Medications Diphenhydramine HCl (Benadryl) 50 mg IVPUSH ONETIME ONE Stop: 10/19/17 07:06 Last Admin: 10/19/17 07:35 Dose: 50 mg Diphenhydramine HCl (Benadryl) 50 mg IVPUSH Q6H PRN PRN Reason: urticaria Last Admin: 10/19/17 18:30 Dose: 50 mg Diphenhydramine HCl (Benadryl) Confirm Administered Dose 50 mg .ROUTE .STK-MED ONE Stop: 10/19/17 19:35 Last Admin: 10/19/17 19:42 Dose: Not Given Doxepin HCl (Sinequan) 25 mg PO ONETIME ONE Stop: 10/19/17 16:55 Last Admin: 10/19/17 18:03 Dose: 25 mg Doxepin HCl (Sinequan) 25 mg PO ONETIME ONE Stop: 10/20/17 11:33 Last Admin: 10/20/17 12:19 Dose: 25 mg Epinephrine HCl (Adrenalin) 0.5 mg IM ONETIME ONE Stop: 10/19/17 06:51 Last Admin: 10/19/17 06:55 Dose: 0.5 mg Famotidine (Pepcid) 20 mg PO ONETIME ONE Stop: 10/19/17 07:07 Last Admin: 10/19/17 07:35 Dose: 20 mg Sodium Chloride (Normal Saline) 1,000 mls @ 999 mls/hr IV STAT ONE Stop: 10/19/17 07:46 Last Admin: 10/19/17 06:56 Dose: 999 mls/hr Methylprednisolone Sodium Succinate (Solu-Medrol) 125 mg IVPUSH ONETIME ONE Stop: 10/19/17 06:54 Last Admin: 10/19/17 07:03 Dose: 125 mg Methylprednisolone Sodium Succinate (Solu-Medrol) 60 mg IVPUSH Q6H [facility] Last Admin: 10/19/17 16:26 Dose: 60 mg Methylprednisolone Sodium Succinate (Solu-Medrol) 125 mg IVPUSH ONETIME ONE Stop: 10/19/17 16:55 Last Admin: 10/19/17 17:23 Dose: Not Given Ondansetron HCl (Zofran) Confirm Administered Dose 4 mg .ROUTE .STK-MED ONE Stop: 10/19/17 07:22 Last Admin: 10/19/17 07:28 Dose: Not Given Ondansetron HCl (Zofran) 4 mg IVPUSH ONETIME ONE Stop: 10/19/17 07:26 Last Admin: 10/19/17 07:30 Dose: 4 mg Venlafaxine HCl (Effexor Xr) 150 mg PO DAILY [facility] - Problem List & Annotations (1) Anaphylactic reaction SNOMED Code(s): 26829485 Code(s): T78.2XXA - ANAPHYLACTIC SHOCK, UNSPECIFIED, INITIAL ENCOUNTER Status: Acute Current Visit: Yes (2) Urticaria due to drug allergy SNOMED Code(s): 94100133 Code(s): L50.0 - ALLERGIC URTICARIA Status: Acute Current Visit: Yes (3) Anaphylactic shock SNOMED Code(s): 382745467 Code(s): T78.2XXA - ANAPHYLACTIC SHOCK, UNSPECIFIED, INITIAL ENCOUNTER Status: Acute Current Visit: Yes (4) Urticarial rash SNOMED Code(s): 177138224 Code(s): L50.9 - URTICARIA, UNSPECIFIED Status: Acute Current Visit: No (5) Diabetes mellitus SNOMED Code(s): 14892160 Code(s): E11.9 - TYPE 2 DIABETES MELLITUS WITHOUT COMPLICATIONS Status: Acute Current Visit: Yes (6) Hypertension SNOMED Code(s): 32625693 Code(s): I10 - ESSENTIAL (PRIMARY) HYPERTENSION Status: Acute Current Visit: Yes - Problem List Review Problem List Initiated/Reviewed/Updated: Yes - My Orders Last 24 Hours: My Active Orders 10/19/17 20:00 methylPREDNISolone Sod Succ [Solu-MEDROL] 125 mg IVPUSH Q6H 10/19/17 21:00 Insulin Aspart [NovoLOG] See Protocol SUBCUT ACBREAKFASTANDBED atorvaSTATin [Lipitor] 40 mg PO BEDTIME 10/19/17 22:00 diphenhydrAMINE [Benadryl] 50 mg IVPUSH Q4H 10/20/17 09:00 Patient's Own Medication [Ptom] 1 each PO DAILY Patient's Own Medication [Ptom] 1 each SUBCUT DAILY 10/20/17 21:00 Doxepin [SINEquan] 25 mg PO BEDTIME ONE 10/21/17 05:11 BASIC METABOLIC PANEL,BMP [CHEM] AM CBC W/O DIFF,HEMOGRAM [HEME] AM 10/22/17 05:11 BASIC METABOLIC PANEL,BMP [CHEM] AM CBC W/O DIFF,HEMOGRAM [HEME] AM - Plan Plan:: ANAPHYLACTIC REACTION, MEDICAMENTOUS RASH - WILL DOCUMENT ALLERGY TO BACTRIUM AND KEFLEX , AVOID RSUSELL INHIBITORS , ON HIGH DOSE OF STEROIDS: 125 MG IV Q 6 H , BENADRYL 50 MG IV Q 4 H , DOXEPIN 25 MG PO BID, CALAMINE LOTION , KENALOG 0.1% CREAM. DM: INSULIN ON SLIDING SCALE , HOLD VICTOZA HTN CONTROLLED - HOLD LISINOPRIL CONTINUE HOME MEDICATIONS, F/UP bp dvt PROFILAXIS: ENOXAPIN 40 MG SUBQ gI PROFILAXIS: PROTONIS 40 MG PO DAILY HLP:ATORVASTATIN 40 MG PO DAILY
[2017-10-20] MEDS ORDERED: Venlafaxine 75 MG Cap.ER PO SCH (09:00)
[2017-10-20] MEDS ORDERED: Doxepin 25 MG Cap PO ONE ×2 (11:32→21:00)
[2017-10-20] MEDS: atorvaSTATin 40 MG Tab PO SCH (20:36)
[2017-10-21] MEDS: Enoxaparin 40 MG/0.4 ML Syringe SUBCUT SCH ×2 (00:39→23:52)
[2017-10-21] MEDS: methylPREDNISolone Sodium Succinate 125 MG/2 ML SDV IVPUSH SCH ×2 (01:18→07:54)
[2017-10-21] MEDS: diphenhydrAMINE 50 MG/ML SDV IVPUSH SCH ×6 (01:18→22:56)
[2017-10-21] MEDS: Pantoprazole 40 MG Tab.CR PO SCH (06:29)
[2017-10-21] MEDS: Insulin Aspart 100 Units/ML 3 ML Pen SUBCUT SCH (06:36)
[2017-10-21 06:52] LABS: CHLORIDE,CL 107 mmol/L (98-107); SODIUM,NA 140 mmol/L (136-145)
[2017-10-21] MEDS: metFORMIN 500 MG Tab.ER PO SCH ×2 (07:54→17:30)
[2017-10-21] MEDS: Venlafaxine 75 MG Cap.ER PO SCH (08:00)
[2017-10-21] MEDS: Canagliflozin [Invokana] 300 MG PO SCH (08:00)
[2017-10-21] MEDS ORDERED: Docusate Sodium Liquid 100 MG/10 ML UD Cup PO ONE (09:19)
[2017-10-21] MEDS ORDERED: Magnesium Citrate Solution 296 ML Bottle PO ONE ×2 (09:20→09:21)
--- NOTE | 2017-10-21 09:30 | PCM.PN ---
- General Info Date of Service: 10/21/17 Admission Dx/Problem (Free Text): Admission Diagnosis/Problem Admission Diagnosis/Problem Anaphylactic reaction, drug rash Subjective Update: Patient c/o constipation , her rash improved but she still has significant itching 7/10 intensity just before the next dose of Benadryl which she gets 50 mg q 4 h. Her rash which is maculo-papular rash as per daughter got worse in the morning just before the next due dose of medication. Currently she is on High dose of steroids - pulse dose - 125 mg iv q 6 h , benadryl 50 mg - Review of Systems General: Reports: No Symptoms HEENT: Reports: No Symptoms Pulmonary: Reports: No Symptoms Cardiovascular: Reports: No Symptoms Gastrointestinal: Reports: Constipation Genitourinary: Reports: No Symptoms Musculoskeletal: Reports: No Symptoms Skin: Reports: Rash Neurological: Reports: No Symptoms Psychiatric: Reports: No Symptoms - Patient Data Vitals - Most Recent: Last Vital Signs Temp 98.2 F 10/21/17 08:00 Pulse 112 H 10/19/17 16:00 Resp 12 10/21/17 09:00 BP 128/63 10/21/17 09:00 Pulse Ox 94 L 10/21/17 09:00 Weight - Most Recent: 138 lb 3.677 oz I&O - Last 24 Hours: Intake & Output 10/20/17 10/21/17 10/21/17 22:59 06:59 14:59 Intake Total 1556 1300 240 Output Total 490 1200 600 Balance 1066 100 -360 Lab Results Last 24 Hours: Laboratory Results - last 24 hr 10/20/17 10/21/17 10/21/17 Range/Units 20:38 04:44 04:44 WBC 9.86 (4.0-11.0) K/uL RBC 3.82 L (4.30-5.90) M/uL Hgb 11.7 L (12.0-16.0) g/dL Hct 34.9 L (36.0-46.0) % MCV 91.4 (80.0-98.0) fL MCH 30.6 (27.0-32.0) pg MCHC 33.5 (31.0-37.0) g/dL RDW Std Deviation 47.5 (28.0-62.0) fl RDW Coeff of Jt 14 (11.0-15.0) % Plt Count 255 (150-400) K/uL MPV 11.30 (7.40-12.00) fL Nucleated RBC % 0.0 /100WBC Nucleated RBCs # 0 K/uL Sodium 140 (136-145) mmol/L Potassium 4.9 (3.5-5.1) mmol/L Chloride 107 (98-107) mmol/L Carbon Dioxide 27.3 (21.0-32.0) mmol/L BUN 27 H (7.0-18.0) mg/dL Creatinine 0.7 (0.6-1.0) mg/dL Est Cr Clr Drug Dosing 59.85 mL/min Estimated GFR (MDRD) > 60.0 ml/min Glucose 179 H (74-106) mg/dL POC Glucose 232 H (60-110) mg/dL Calcium 8.3 L (8.5-10.1) mg/dL 10/21/17 Range/Units 06:27 WBC (4.0-11.0) K/uL RBC (4.30-5.90) M/uL Hgb (12.0-16.0) g/dL Hct (36.0-46.0) % MCV (80.0-98.0) fL MCH (27.0-32.0) pg MCHC (31.0-37.0) g/dL RDW Std Deviation (28.0-62.0) fl RDW Coeff of Jt (11.0-15.0) % Plt Count (150-400) K/uL MPV (7.40-12.00) fL Nucleated RBC % /100WBC Nucleated RBCs # K/uL Sodium (136-145) mmol/L Potassium (3.5-5.1) mmol/L Chloride (98-107) mmol/L Carbon Dioxide (21.0-32.0) mmol/L BUN (7.0-18.0) mg/dL Creatinine (0.6-1.0) mg/dL Est Cr Clr Drug Dosing mL/min Estimated GFR (MDRD) ml/min Glucose (74-106) mg/dL POC Glucose 154 H (60-110) mg/dL Calcium (8.5-10.1) mg/dL Med Orders - Current: Current Medications Acetaminophen (Tylenol) 650 mg PO Q4H PRN PRN Reason: Pain (Mild 1-3)/fever Albuterol/Ipratropium (Duoneb 3.0-0.5 Mg/3 Ml) 3 ml NEB Q4HRRT PRN PRN Reason: Shortness Of Breath/wheezing Atorvastatin Calcium (Lipitor) 40 mg PO BEDTIME [facility] Last Admin: 10/20/17 20:36 Dose: 40 mg Calamine/Phenol (Gold Schultz Medicated Body Pwd) 1 gm TOP BID PRN PRN Reason: Itching Diphenhydramine HCl (Benadryl) 50 mg IVPUSH Q4H [facility] Last Admin: 10/21/17 06:29 Dose: 50 mg Enoxaparin Sodium (Lovenox) 40 mg SUBCUT Q24H [facility] Last Admin: 10/21/17 00:39 Dose: 40 mg Insulin Aspart (Novolog) 0 unit SUBCUT ACBREAKFASTANDBED [facility]; Protocol Last Admin: 10/21/17 06:36 Dose: 2 units Metformin HCl (Glucophage Xr) 1,000 mg PO BIDMEALS [facility] Last Admin: 10/21/17 07:54 Dose: 1,000 mg Methylprednisolone Sodium Succinate (Solu-Medrol) 125 mg IVPUSH Q6H [facility] Last Admin: 10/21/17 07:54 Dose: 125 mg Pantoprazole Sodium (Protonix) 40 mg PO ACBREAKFAST [facility] Last Admin: 10/21/17 06:29 Dose: 40 mg Canagliflozin [ (Invokana] 300 Mg) 1 each PO DAILY [facility] Last Admin: 10/21/17 08:00 Dose: 1 each Liraglutide 1.8 Mg 1 each SUBCUT DAILY [facility] Last Admin: 10/21/17 08:00 Dose: Not Given Sodium Chloride (Saline Flush) 10 ml FLUSH ASDIRECTED PRN PRN Reason: Keep Vein Open Sodium Chloride (Saline Flush) 2.5 ml FLUSH ASDIRECTED PRN PRN Reason: Keep Vein Open Triamcinolone Acetonide (Kenalog 0.1% Crm) 0 gm TOP BID PRN PRN Reason: itching , rash Last Admin: 10/20/17 07:39 Dose: 1 dose Venlafaxine HCl (Effexor Xr) 150 mg PO DAILY [facility] Last Admin: 10/21/17 08:00 Dose: 150 mg Discontinued Medications Diphenhydramine HCl (Benadryl) 50 mg IVPUSH ONETIME ONE Stop: 10/19/17 07:06 Last Admin: 10/19/17 07:35 Dose: 50 mg Diphenhydramine HCl (Benadryl) 50 mg IVPUSH Q6H PRN PRN Reason: urticaria Last Admin: 10/19/17 18:30 Dose: 50 mg Diphenhydramine HCl (Benadryl) Confirm Administered Dose 50 mg .ROUTE .STK-MED ONE Stop: 10/19/17 19:35 Last Admin: 10/19/17 19:42 Dose: Not Given Docusate Sodium (Colace 50 Mg/5 Ml Liquid) 200 mg PO ONETIME ONE Stop: 10/21/17 09:20 Doxepin HCl (Sinequan) 25 mg PO ONETIME ONE Stop: 10/19/17 16:55 Last Admin: 10/19/17 18:03 Dose: 25 mg Doxepin HCl (Sinequan) 25 mg PO ONETIME ONE Stop: 10/20/17 11:33 Last Admin: 10/20/17 12:19 Dose: 25 mg Doxepin HCl (Sinequan) 25 mg PO BEDTIME ONE Stop: 10/20/17 21:01 Last Admin: 10/20/17 20:36 Dose: 25 mg Epinephrine HCl (Adrenalin) 0.5 mg IM ONETIME ONE Stop: 10/19/17 06:51 Last Admin: 10/19/17 06:55 Dose: 0.5 mg Famotidine (Pepcid) 20 mg PO ONETIME ONE Stop: 10/19/17 07:07 Last Admin: 10/19/17 07:35 Dose: 20 mg Sodium Chloride (Normal Saline) 1,000 mls @ 999 mls/hr IV STAT ONE Stop: 10/19/17 07:46 Last Admin: 10/19/17 06:56 Dose: 999 mls/hr Lactated Ringer's (Ringers, Lactated) 1,000 mls @ 125 mls/hr IV ASDIRECTED [facility] Last Admin: 10/20/17 18:07 Dose: 125 mls/hr Magnesium Citrate (Citrate Of Magnesia) 30 ml PO ONETIME ONE Stop: 10/21/17 09:21 Magnesium Citrate (Citrate Of Magnesia) 200 ml PO ONETIME ONE Stop: 10/21/17 09:22 Methylprednisolone Sodium Succinate (Solu-Medrol) 125 mg IVPUSH ONETIME ONE Stop: 10/19/17 06:54 Last Admin: 10/19/17 07:03 Dose: 125 mg Methylprednisolone Sodium Succinate (Solu-Medrol) 60 mg IVPUSH Q6H [facility] Last Admin: 10/19/17 16:26 Dose: 60 mg Methylprednisolone Sodium Succinate (Solu-Medrol) 125 mg IVPUSH ONETIME ONE Stop: 10/19/17 16:55 Last Admin: 10/19/17 17:23 Dose: Not Given Ondansetron HCl (Zofran) Confirm Administered Dose 4 mg .ROUTE .STK-MED ONE Stop: 10/19/17 07:22 Last Admin: 10/19/17 07:28 Dose: Not Given Ondansetron HCl (Zofran) 4 mg IVPUSH ONETIME ONE Stop: 10/19/17 07:26 Last Admin: 10/19/17 07:30 Dose: 4 mg Venlafaxine HCl (Effexor Xr) 150 mg PO DAILY [facility] - Exam General: Alert, Oriented HEENT: Pupils Equal, Pupils Reactive Neck: Supple, Trachea Midline, No JVD Lungs: Clear to Auscultation, Normal Respiratory Effort Cardiovascular: Regular Rate, Regular Rhythm, No Murmurs GI/Abdominal Exam: Normal Bowel Sounds, Soft, Non-Tender, No Organomegaly Back Exam: Normal Inspection Extremities: Normal Inspection Skin: Warm, Dry, Rash (maculopapular rash) Neurological: No New Focal Deficit - Problem List & Annotations (1) Anaphylactic reaction SNOMED Code(s): 61641445 Code(s): T78.2XXA - ANAPHYLACTIC SHOCK, UNSPECIFIED, INITIAL ENCOUNTER Status: Acute Current Visit: Yes (2) Urticaria due to drug allergy SNOMED Code(s): 78548202 Code(s): L50.0 - ALLERGIC URTICARIA Status: Acute Current Visit: Yes (3) Anaphylactic shock SNOMED Code(s): 388548726 Code(s): T78.2XXA - ANAPHYLACTIC SHOCK, UNSPECIFIED, INITIAL ENCOUNTER Status: Acute Current Visit: Yes (4) Urticarial rash SNOMED Code(s): 221689942 Code(s): L50.9 - URTICARIA, UNSPECIFIED Status: Acute Current Visit: No (5) Diabetes mellitus SNOMED Code(s): 36170584 Code(s): E11.9 - TYPE 2 DIABETES MELLITUS WITHOUT COMPLICATIONS Status: Acute Current Visit: Yes (6) Hypertension SNOMED Code(s): 11551741 Code(s): I10 - ESSENTIAL (PRIMARY) HYPERTENSION Status: Acute Current Visit: Yes (7) Allergic drug rash SNOMED Code(s): 68526396, 487618093 Code(s): L27.0 - GEN SKIN ERUPTION DUE TO DRUGS AND MEDS TAKEN INTERNALLY Status: Acute Current Visit: Yes - Problem List Review Problem List Initiated/Reviewed/Updated: Yes - My Orders Last 24 Hours: My Active Orders 10/20/17 09:00 Patient's Own Medication [Ptom] 1 each PO DAILY Patient's Own Medication [Ptom] 1 each SUBCUT DAILY 10/21/17 00:00 Enoxaparin [Lovenox] 40 mg SUBCUT Q24H 10/21/17 07:30 Pantoprazole [ProTONIX] 40 mg PO ACBREAKFAST 10/22/17 05:11 BASIC METABOLIC PANEL,BMP [CHEM] AM CBC W/O DIFF,HEMOGRAM [HEME] AM - Plan Plan:: ANAPHYLACTIC REACTION, allergic drug rash - WILL DOCUMENT ALLERGY TO BACTRIUM AND KEFLEX , AVOID RUSSELL INHIBITORS ,avoid tylenol will taper steroids to 60 mg iv q 6 h and will observe , downgrade patient to medical surge , continue BENADRYL 50 MG IV Q 4 H , DOXEPIN 25 MG PO BID, CALAMINE LOTION , KENALOG 0.1% CREAM. DM: INSULIN ON SLIDING SCALE , HOLD VICTOZA, continue home mediacation Metformin 1000 mg po BID HTN CONTROLLED - HOLD LISINOPRIL CONTINUE HOME MEDICATIONS, F/UP BP dvt PROFILAXIS: ENOXAPIN 40 MG SUBQ gI PROFILAXIS: PROTONIx 40 MG PO DAILY HLP:ATORVASTATIN 40 MG PO DAILY Constipation due to anticolinergics- iv fluids and magnesium citrate 200 cc one dose and colace 200 mg 1 caps po
[2017-10-21] MEDS ORDERED: Docusate Sodium 100 MG Cap PO ONE (09:45)
[2017-10-21] MEDS: Lactated Ringers 1,000 ML IV SCH ×2 (09:46→17:35)
[2017-10-21] MEDS: Triamcinolone Acetonide 0.1% Crm 80 GM Tube TOP PRN (10:37)
[2017-10-21] MEDS: methylPREDNISolone Sodium Succinate 40 MG/1 ML SDV IVPUSH SCH ×2 (13:36→19:35)
[2017-10-21] MEDS ORDERED: Insulin Glargine,Human Rec. Analog 100 Units/ML 3 ML Pen SUBCUT ONE (21:00)
[2017-10-21] MEDS: atorvaSTATin 40 MG Tab PO SCH (22:56)
[2017-10-22] MEDS: methylPREDNISolone Sodium Succinate 40 MG/1 ML SDV IVPUSH SCH ×2 (01:45→08:33)
[2017-10-22] MEDS: Lactated Ringers 1,000 ML IV SCH (01:45)
[2017-10-22] MEDS: diphenhydrAMINE 50 MG/ML SDV IVPUSH SCH ×3 (01:46→10:23)
[2017-10-22 05:38] LABS: CHLORIDE,CL 106 mmol/L (98-107); SODIUM,NA 139 mmol/L (136-145)
[2017-10-22] MEDS: Pantoprazole 40 MG Tab.CR PO SCH (06:52)
[2017-10-22] MEDS: Insulin Aspart 100 Units/ML 3 ML Pen SUBCUT SCH ×3 (07:29→17:19)
[2017-10-22] MEDS: Triamcinolone Acetonide 0.1% Crm 80 GM Tube TOP PRN (08:23)
[2017-10-22] MEDS: Venlafaxine 75 MG Cap.ER PO SCH (08:32)
[2017-10-22] MEDS: metFORMIN 500 MG Tab.ER PO SCH ×2 (08:32→17:15)
[2017-10-22] MEDS: predniSONE 10 MG Tab PO SCH (10:51)
[2017-10-22] MEDS: Doxepin 25 MG Cap PO SCH ×2 (10:51→21:38)
[2017-10-22] MEDS: Canagliflozin [Invokana] 300 MG PO SCH (10:52)
[2017-10-22] MEDS ORDERED: methylPREDNISolone Sodium Succinate 125 MG/2 ML SDV IVPUSH SCH (14:00)
--- NOTE | 2017-10-22 19:49 | PCM.PN ---
- General Info Date of Service: 10/22/17 Admission Dx/Problem (Free Text): Admission Diagnosis/Problem Admission Diagnosis/Problem Anaphylactic reaction, drug rash Subjective Update: Patient rash improved , still her rash came scattered small spots on the body , and dissapeared by noon , she still has mild to moderate itching of skin - Review of Systems General: Reports: No Symptoms HEENT: Reports: No Symptoms, Rhinitis Cardiovascular: Reports: No Symptoms Gastrointestinal: Reports: No Symptoms Genitourinary: Reports: No Symptoms Musculoskeletal: Reports: No Symptoms Skin: Reports: Rash, Other (itching) Neurological: Reports: No Symptoms Psychiatric: Reports: No Symptoms - Patient Data Vitals - Most Recent: Last Vital Signs Temp 97.8 F 10/22/17 16:00 Pulse 72 10/22/17 16:00 Resp 16 10/22/17 16:00 BP 130/56 L 10/22/17 16:00 Pulse Ox 99 10/22/17 16:00 Weight - Most Recent: 138 lb 3.677 oz I&O - Last 24 Hours: Intake & Output 10/22/17 10/22/17 10/22/17 06:59 14:59 22:59 Intake Total 1599 1100 Output Total 1800 1400 Balance -201 -300 Lab Results Last 24 Hours: Laboratory Results - last 24 hr 10/21/17 10/22/17 10/22/17 Range/Units 21:55 04:55 04:55 WBC 10.81 (4.0-11.0) K/uL RBC 3.89 L (4.30-5.90) M/uL Hgb 11.8 L (12.0-16.0) g/dL Hct 35.3 L (36.0-46.0) % MCV 90.7 (80.0-98.0) fL MCH 30.3 (27.0-32.0) pg MCHC 33.4 (31.0-37.0) g/dL RDW Std Deviation 46.2 (28.0-62.0) fl RDW Coeff of Jt 14 (11.0-15.0) % Plt Count 256 (150-400) K/uL MPV 11.10 (7.40-12.00) fL Nucleated RBC % 0.0 /100WBC Nucleated RBCs # 0 K/uL Sodium 139 (136-145) mmol/L Potassium 4.5 (3.5-5.1) mmol/L Chloride 106 (98-107) mmol/L Carbon Dioxide 27.3 (21.0-32.0) mmol/L BUN 24 H (7.0-18.0) mg/dL Creatinine 0.7 (0.6-1.0) mg/dL Est Cr Clr Drug Dosing 59.85 mL/min Estimated GFR (MDRD) > 60.0 ml/min Glucose 185 H (74-106) mg/dL POC Glucose 263 H (60-110) mg/dL Calcium 8.0 L (8.5-10.1) mg/dL 10/22/17 10/22/17 10/22/17 Range/Units 06:02 10:58 15:54 WBC (4.0-11.0) K/uL RBC (4.30-5.90) M/uL Hgb (12.0-16.0) g/dL Hct (36.0-46.0) % MCV (80.0-98.0) fL MCH (27.0-32.0) pg MCHC (31.0-37.0) g/dL RDW Std Deviation (28.0-62.0) fl RDW Coeff of Jt (11.0-15.0) % Plt Count (150-400) K/uL MPV (7.40-12.00) fL Nucleated RBC % /100WBC Nucleated RBCs # K/uL Sodium (136-145) mmol/L Potassium (3.5-5.1) mmol/L Chloride (98-107) mmol/L Carbon Dioxide (21.0-32.0) mmol/L BUN (7.0-18.0) mg/dL Creatinine (0.6-1.0) mg/dL Est Cr Clr Drug Dosing mL/min Estimated GFR (MDRD) ml/min Glucose (74-106) mg/dL POC Glucose 142 H 217 H 224 H (60-110) mg/dL Calcium (8.5-10.1) mg/dL Med Orders - Current: Current Medications Acetaminophen (Tylenol) 650 mg PO Q4H PRN PRN Reason: Pain (Mild 1-3)/fever Albuterol/Ipratropium (Duoneb 3.0-0.5 Mg/3 Ml) 3 ml NEB Q4HRRT PRN PRN Reason: Shortness Of Breath/wheezing Atorvastatin Calcium (Lipitor) 40 mg PO BEDTIME [facility] Last Admin: 10/21/17 22:56 Dose: 40 mg Calamine/Phenol (Gold Schultz Medicated Body Pwd) 1 gm TOP BID PRN PRN Reason: Itching Diphenhydramine HCl (Benadryl) 50 mg PO Q6H PRN PRN Reason: Itching Doxepin HCl (Sinequan) 25 mg PO BID [facility] Last Admin: 10/22/17 10:51 Dose: 25 mg Enoxaparin Sodium (Lovenox) 40 mg SUBCUT Q24H [facility] Last Admin: 10/21/17 23:52 Dose: 40 mg Insulin Aspart (Novolog) 0 unit SUBCUT TIDAC [facility]; Protocol Last Admin: 10/22/17 17:19 Dose: 4 units Metformin HCl (Glucophage Xr) 1,000 mg PO BIDMEALS [facility] Last Admin: 10/22/17 17:15 Dose: 1,000 mg Pantoprazole Sodium (Protonix) 40 mg PO ACBREAKFAST [facility] Last Admin: 10/22/17 06:52 Dose: 40 mg Canagliflozin [ (Invokana] 300 Mg) 1 each PO DAILY [facility] Last Admin: 10/22/17 10:52 Dose: 1 each Liraglutide 1.8 Mg 1 each SUBCUT DAILY [facility] Last Admin: 10/22/17 10:22 Dose: Not Given Prednisone (Prednisone) 50 mg PO DAILY [facility] Last Admin: 10/22/17 10:51 Dose: 50 mg Sodium Chloride (Saline Flush) 10 ml FLUSH ASDIRECTED PRN PRN Reason: Keep Vein Open Sodium Chloride (Saline Flush) 2.5 ml FLUSH ASDIRECTED PRN PRN Reason: Keep Vein Open Triamcinolone Acetonide (Kenalog 0.1% Crm) 0 gm TOP BID PRN PRN Reason: itching , rash Last Admin: 10/22/17 08:23 Dose: 1 dose Venlafaxine HCl (Effexor Xr) 150 mg PO DAILY [facility] Last Admin: 10/22/17 08:32 Dose: 150 mg Discontinued Medications Diphenhydramine HCl (Benadryl) 50 mg IVPUSH ONETIME ONE Stop: 10/19/17 07:06 Last Admin: 10/19/17 07:35 Dose: 50 mg Diphenhydramine HCl (Benadryl) 50 mg IVPUSH Q6H PRN PRN Reason: urticaria Last Admin: 10/19/17 18:30 Dose: 50 mg Diphenhydramine HCl (Benadryl) 50 mg IVPUSH Q4H [facility] Last Admin: 10/22/17 10:23 Dose: 50 mg Diphenhydramine HCl (Benadryl) Confirm Administered Dose 50 mg .ROUTE .STK-MED ONE Stop: 10/19/17 19:35 Last Admin: 10/19/17 19:42 Dose: Not Given Docusate Sodium (Colace 50 Mg/5 Ml Liquid) 200 mg PO ONETIME ONE Stop: 10/21/17 09:20 Last Admin: 10/21/17 09:42 Dose: Not Given Docusate Sodium (Colace) 200 mg PO ONETIME ONE Stop: 10/21/17 09:46 Last Admin: 10/21/17 09:45 Dose: 200 mg Doxepin HCl (Sinequan) 25 mg PO ONETIME ONE Stop: 10/19/17 16:55 Last Admin: 10/19/17 18:03 Dose: 25 mg Doxepin HCl (Sinequan) 25 mg PO ONETIME ONE Stop: 10/20/17 11:33 Last Admin: 10/20/17 12:19 Dose: 25 mg Doxepin HCl (Sinequan) 25 mg PO BEDTIME ONE Stop: 10/20/17 21:01 Last Admin: 10/20/17 20:36 Dose: 25 mg Epinephrine HCl (Adrenalin) 0.5 mg IM ONETIME ONE Stop: 10/19/17 06:51 Last Admin: 10/19/17 06:55 Dose: 0.5 mg Famotidine (Pepcid) 20 mg PO ONETIME ONE Stop: 10/19/17 07:07 Last Admin: 10/19/17 07:35 Dose: 20 mg Sodium Chloride (Normal Saline) 1,000 mls @ 999 mls/hr IV STAT ONE Stop: 10/19/17 07:46 Last Admin: 10/19/17 06:56 Dose: 999 mls/hr Lactated Ringer's (Ringers, Lactated) 1,000 mls @ 125 mls/hr IV ASDIRECTED [facility] Last Admin: 10/20/17 18:07 Dose: 125 mls/hr Lactated Ringer's (Ringers, Lactated) 1,000 mls @ 125 mls/hr IV ASDIRECTED [facility] Last Admin: 10/22/17 01:45 Dose: 125 mls/hr Insulin Aspart (Novolog) 0 unit SUBCUT ACBREAKFASTANDBED [facility]; Protocol Last Admin: 10/21/17 06:36 Dose: 2 units Insulin Glargine (Lantus Solostar) 12 units SUBCUT BEDTIME ONE Stop: 10/21/17 21:01 Last Admin: 10/21/17 22:56 Dose: 12 units Magnesium Citrate (Citrate Of Magnesia) 30 ml PO ONETIME ONE Stop: 10/21/17 09:21 Magnesium Citrate (Citrate Of Magnesia) 200 ml PO ONETIME ONE Stop: 10/21/17 09:22 Last Admin: 10/21/17 09:45 Dose: 200 ml Methylprednisolone Sodium Succinate (Solu-Medrol) 125 mg IVPUSH ONETIME ONE Stop: 10/19/17 06:54 Last Admin: 10/19/17 07:03 Dose: 125 mg Methylprednisolone Sodium Succinate (Solu-Medrol) 60 mg IVPUSH Q6H [facility] Last Admin: 10/19/17 16:26 Dose: 60 mg Methylprednisolone Sodium Succinate (Solu-Medrol) 125 mg IVPUSH ONETIME ONE Stop: 10/19/17 16:55 Last Admin: 10/19/17 17:23 Dose: Not Given Methylprednisolone Sodium Succinate (Solu-Medrol) 125 mg IVPUSH Q6H [facility] Last Admin: 10/21/17 07:54 Dose: 125 mg Methylprednisolone Sodium Succinate (Solu-Medrol) 60 mg IVPUSH Q6H [facility] Last Admin: 10/22/17 08:33 Dose: 60 mg Methylprednisolone Sodium Succinate (Solu-Medrol) 60 mg IVPUSH Q6H [facility] Ondansetron HCl (Zofran) Confirm Administered Dose 4 mg .ROUTE .STK-MED ONE Stop: 10/19/17 07:22 Last Admin: 10/19/17 07:28 Dose: Not Given Ondansetron HCl (Zofran) 4 mg IVPUSH ONETIME ONE Stop: 10/19/17 07:26 Last Admin: 10/19/17 07:30 Dose: 4 mg Venlafaxine HCl (Effexor Xr) 150 mg PO DAILY [facility] - Exam Quality Assessment: Supplemental Oxygen General: Alert, Oriented HEENT: Pupils Equal, Pupils Reactive, EOMI Neck: Supple, Trachea Midline, No JVD, No Thyromegaly Lungs: Clear to Auscultation, Normal Respiratory Effort Cardiovascular: Regular Rate, Regular Rhythm, No Murmurs GI/Abdominal Exam: Normal Bowel Sounds, Soft, Non-Tender, No Organomegaly Back Exam: Normal Inspection Extremities: Normal Inspection Skin: Warm, Dry, Rash Neurological: No New Focal Deficit Psy/Mental Status: Alert, Normal Affect, Normal Mood - Problem List & Annotations (1) Anaphylactic reaction SNOMED Code(s): 20524516 Code(s): T78.2XXA - ANAPHYLACTIC SHOCK, UNSPECIFIED, INITIAL ENCOUNTER Status: Acute Current Visit: Yes (2) Urticaria due to drug allergy SNOMED Code(s): 57306305 Code(s): L50.0 - ALLERGIC URTICARIA Status: Acute Current Visit: Yes (3) Anaphylactic shock SNOMED Code(s): 476577896 Code(s): T78.2XXA - ANAPHYLACTIC SHOCK, UNSPECIFIED, INITIAL ENCOUNTER Status: Acute Current Visit: Yes (4) Urticarial rash SNOMED Code(s): 368033607 Code(s): L50.9 - URTICARIA, UNSPECIFIED Status: Acute Current Visit: No (5) Diabetes mellitus SNOMED Code(s): 78433371 Code(s): E11.9 - TYPE 2 DIABETES MELLITUS WITHOUT COMPLICATIONS Status: Acute Current Visit: Yes (6) Hypertension SNOMED Code(s): 26272851 Code(s): I10 - ESSENTIAL (PRIMARY) HYPERTENSION Status: Acute Current Visit: Yes (7) Allergic drug rash SNOMED Code(s): 38383057, 592604291 Code(s): L27.0 - GEN SKIN ERUPTION DUE TO DRUGS AND MEDS TAKEN INTERNALLY Status: Acute Current Visit: Yes (8) Acute allergic reaction SNOMED Code(s): 596833635 Code(s): T78.40XA - ALLERGY, UNSPECIFIED, INITIAL ENCOUNTER Status: Acute Current Visit: Yes - Problem List Review Problem List Initiated/Reviewed/Updated: Yes - My Orders Last 24 Hours: My Active Orders 10/22/17 07:30 Insulin Aspart [NovoLOG] See Protocol SUBCUT TIDAC 10/22/17 10:26 diphenhydrAMINE [Benadryl] 50 mg PO Q6H PRN 10/22/17 10:30 Doxepin [SINEquan] 25 mg PO BID predniSONE 50 mg PO DAILY - Plan Plan:: ANAPHYLACTIC REACTION, allergic drug rash - WILL DOCUMENT ALLERGY TO BACTRIUM AND KEFLEX , AVOID RUSSELL INHIBITORS ,avoid tylenol will taper steroids to prednisone 50 mg po daily and will observe , , continue BENADRYL 50 MG po q 6 h , DOXEPIN 25 MG PO BID, CALAMINE LOTION , KENALOG 0.1% CREAM. DM: INSULIN ON SLIDING SCALE , HOLD VICTOZA, continue home medication Metformin 1000 mg po BID HTN CONTROLLED - HOLD LISINOPRIL CONTINUE HOME MEDICATIONS, F/UP BP dvt PROFILAXIS: ENOXAPIN 40 MG SUBQ gI PROFILAXIS: PROTONIx 40 MG PO DAILY HLP:ATORVASTATIN 40 MG PO DAILY Constipation due to anticolinergics- resolved with magnesium citrate
[2017-10-22] MEDS: diphenhydrAMINE 50 MG Cap PO PRN (21:38)
[2017-10-22] MEDS: atorvaSTATin 40 MG Tab PO SCH (21:39)
[2017-10-23] MEDS: Enoxaparin 40 MG/0.4 ML Syringe SUBCUT SCH (00:43)
[2017-10-23] MEDS: Pantoprazole 40 MG Tab.CR PO SCH (06:30)
[2017-10-23] MEDS: Insulin Aspart 100 Units/ML 3 ML Pen SUBCUT SCH ×2 (06:34→12:12)
[2017-10-23] MEDS: diphenhydrAMINE 50 MG Cap PO PRN (06:46)
[2017-10-23] MEDS: predniSONE 10 MG Tab PO SCH (07:59)
[2017-10-23] MEDS: metFORMIN 500 MG Tab.ER PO SCH (07:59)
[2017-10-23] MEDS: Doxepin 25 MG Cap PO SCH (08:00)
[2017-10-23] MEDS: Venlafaxine 75 MG Cap.ER PO SCH (08:00)
[2017-10-23] MEDS: Canagliflozin [Invokana] 300 MG PO SCH (08:04)
[2017-10-23] MEDS ORDERED: Insulin Glargine,Human Rec. Analog 100 Units/ML 3 ML Pen SUBCUT SCH (09:00)
[2017-10-23 11:57] VITALS: BP 162/83
--- NOTE | 2017-10-23 14:38 | PCM.DCSUM1 ---
Discharge Summary - Hospital Course Free Text/Narrative:: Patient 61 y old female admitted in the hospital with anaphylactic reaction and generalized body rash maculopapular, was admitted in ICU for observation and she received in emergency room epinephrine iv and solumedrol 125 mg iv , she was tachycardic on the floor , had facial swelling and she had hypotension at admission . She was continued on the floor with Solu-Medrol 60 mg IV every 6 hours and Benadryl 50 mg IV every 6 hours which were increased to 125 mg IV every 6 hours due concern of worsening symptoms and no improvement, and Benadryl was increased to 50 mg every 4 hours. Patient was also given topical calamine solution for itching to apply on the rash , cold compresses , she had intractable itching and doxepin 25 mg by mouth twice a day for pruritus. The rash improved day by day, but mostly in the morning new lesions appeared just before vandana next dose Medication was tapered and her rash disappeared compleatedly in the day of the discharge and patient was still discharged home with prednisone 50 mg by mouth daily for another 2 days because she had itching rated 4 in 10 in intensity and she also received Benadryl 50 mg by mouth every 6 hours prn for another 2-3 days. Diagnostic of discharge anaphylactic reaction, allergic drug reaction, patient had documented in the chart allergy to cephalexin and Bactrium , she was also told to stop lisinopril , patient to follow-up with her primary care physician and with the allergologyst to have further testing. HPI Initial Comments: Patient 61 years old female presented to Emergency room because she broke up into rash on night and was getting worse.She was seen in ER on Friday and was discharged home with Benadryl . In ER, on Friday she was given solumedrol iv one dose and her rash felt better . She had some improvement in her rash on Friday , but the rash got worse on Friday and she had swelling of her throat and lips and came back to ER. She was at home on RUSSELL inhibitors, lisinopril and she just completed on a course of antibiotics: keflex and Bactrium which she received for a duration of 10 days for a facial infection , after she pulled a facial hair with a tweezer - Discharge Data Discharge Date: 10/23/17 Discharge Disposition: Home, Self-Care 01 Condition: Stable - Discharge Diagnosis/Problem(s) (1) Anaphylactic reaction SNOMED Code(s): 09221524 ICD Code: T78.2XXA - ANAPHYLACTIC SHOCK, UNSPECIFIED, INITIAL ENCOUNTER Status: Acute (2) Urticaria due to drug allergy SNOMED Code(s): 51590650 ICD Code: L50.0 - ALLERGIC URTICARIA Status: Acute (3) Anaphylactic shock SNOMED Code(s): 713624045 ICD Code: T78.2XXA - ANAPHYLACTIC SHOCK, UNSPECIFIED, INITIAL ENCOUNTER Status: Acute (4) Urticarial rash SNOMED Code(s): 604099860 ICD Code: L50.9 - URTICARIA, UNSPECIFIED Status: Acute (5) Diabetes mellitus SNOMED Code(s): 41583016 ICD Code: E11.9 - TYPE 2 DIABETES MELLITUS WITHOUT COMPLICATIONS Status: Acute (6) Hypertension SNOMED Code(s): 40997869 ICD Code: I10 - ESSENTIAL (PRIMARY) HYPERTENSION Status: Acute (7) Allergic drug rash SNOMED Code(s): 32888612, 184817165 ICD Code: L27.0 - GEN SKIN ERUPTION DUE TO DRUGS AND MEDS TAKEN INTERNALLY Status: Acute (8) Acute allergic reaction SNOMED Code(s): 593830325 ICD Code: T78.40XA - ALLERGY, UNSPECIFIED, INITIAL ENCOUNTER Status: Acute - Discharge Plan Prescriptions/Med Rec: diphenhydrAMINE HCl [Benadryl Allergy] 50 mg PO Q6H PRN #30 tablet PRN Reason: Itching predniSONE 50 mg PO DAILY #2 tablet Home Medications: Home Meds Canagliflozin [Invokana] 300 mg PO DAILY 04/23/15 [History] Venlafaxine [Effexor XR] 150 mg PO DAILY 04/23/15 [History] atorvaSTATin Calcium [Atorvastatin Calcium] 40 mg PO BEDTIME 04/23/15 [History] metFORMIN [Glucophage] 1,000 mg PO BIDMEALS 04/23/15 [History] Liraglutide [Victoza] 1.8 mg SUBCUT DAILY 10/17/17 [History] diphenhydrAMINE HCl [Benadryl Allergy] 50 mg PO Q6H PRN #30 tablet 10/23/17 [Rx] diphenhydrAMINE [Benadryl] 50 mg PO Q6H PRN cap 10/23/17 [Rx] predniSONE 50 mg PO DAILY #2 tablet 10/23/17 [Rx] Patient Handouts: Allergies, Adult, [id number], Diphenhydramine capsules or tablets, Drug Allergy, [id number]-[id number], Prednisone tablets Referrals: Marlon Oakley PA [Physician Rehab Director Occupational Therapist] - 11/04/17 1:45 pm - Discharge Summary/Plan Comment DC Time >30 min.: Yes - General Info Date of Service: 10/23/17 - Review of Systems General: Reports: No Symptoms HEENT: Reports: No Symptoms Pulmonary: Reports: No Symptoms Cardiovascular: Reports: No Symptoms Gastrointestinal: Reports: No Symptoms Genitourinary: Reports: No Symptoms Musculoskeletal: Reports: No Symptoms Skin: Reports: Pruritis Neurological: Reports: No Symptoms Psychiatric: Reports: No Symptoms - Patient Data Vitals - Most Recent: Last Vital Signs Temp 97.9 F 10/23/17 11:56 Pulse 68 10/23/17 11:56 Resp 18 10/23/17 11:56 BP 162/83 H 10/23/17 11:56 Pulse Ox 94 L 10/23/17 11:56 Weight - Most Recent: 138 lb 3.677 oz I&O - Last 24 hours: Intake & Output 10/22/17 10/23/17 10/23/17 22:59 06:59 14:59 Intake Total 1100 1000 Output Total 1400 1800 Balance -300 -800 Lab Results - Last 24 hrs: Laboratory Results - last 24 hr 10/22/17 10/22/17 Range/Units 15:54 22:46 POC Glucose 224 H 232 H (60-110) mg/dL Med Orders - Current: Current Medications Acetaminophen (Tylenol) 650 mg PO Q4H PRN PRN Reason: Pain (Mild 1-3)/fever Albuterol/Ipratropium (Duoneb 3.0-0.5 Mg/3 Ml) 3 ml NEB Q4HRRT PRN PRN Reason: Shortness Of Breath/wheezing Atorvastatin Calcium (Lipitor) 40 mg PO BEDTIME [facility] Last Admin: 10/22/17 21:39 Dose: 40 mg Calamine/Phenol (Gold Schultz Medicated Body Pwd) 1 gm TOP BID PRN PRN Reason: Itching Diphenhydramine HCl (Benadryl) 50 mg PO Q6H PRN PRN Reason: Itching Last Admin: 10/23/17 06:46 Dose: 50 mg Doxepin HCl (Sinequan) 25 mg PO BID [facility] Last Admin: 10/23/17 08:00 Dose: 25 mg Enoxaparin Sodium (Lovenox) 40 mg SUBCUT Q24H [facility] Last Admin: 10/23/17 00:43 Dose: 40 mg Insulin Aspart (Novolog) 0 unit SUBCUT TIDAC [facility]; Protocol Last Admin: 10/23/17 12:12 Dose: Not Given Insulin Glargine (Lantus Solostar) 7 units SUBCUT ONETIME [facility] Last Admin: 10/23/17 11:41 Dose: 7 units Metformin HCl (Glucophage Xr) 1,000 mg PO BIDMEALS [facility] Last Admin: 10/23/17 07:59 Dose: 1,000 mg Pantoprazole Sodium (Protonix) 40 mg PO ACBREAKFAST [facility] Last Admin: 10/23/17 06:30 Dose: 40 mg Canagliflozin [ (Invokana] 300 Mg) 1 each PO DAILY [facility] Last Admin: 10/23/17 08:04 Dose: 1 each Liraglutide 1.8 Mg 1 each SUBCUT DAILY [facility] Last Admin: 10/23/17 08:06 Dose: Not Given Prednisone (Prednisone) 50 mg PO DAILY [facility] Last Admin: 10/23/17 07:59 Dose: 50 mg Sodium Chloride (Saline Flush) 10 ml FLUSH ASDIRECTED PRN PRN Reason: Keep Vein Open Sodium Chloride (Saline Flush) 2.5 ml FLUSH ASDIRECTED PRN PRN Reason: Keep Vein Open Triamcinolone Acetonide (Kenalog 0.1% Crm) 0 gm TOP BID PRN PRN Reason: itching , rash Last Admin: 10/22/17 08:23 Dose: 1 dose Venlafaxine HCl (Effexor Xr) 150 mg PO DAILY [facility] Last Admin: 10/23/17 08:00 Dose: 150 mg Discontinued Medications Diphenhydramine HCl (Benadryl) 50 mg IVPUSH ONETIME ONE Stop: 10/19/17 07:06 Last Admin: 10/19/17 07:35 Dose: 50 mg Diphenhydramine HCl (Benadryl) 50 mg IVPUSH Q6H PRN PRN Reason: urticaria Last Admin: 10/19/17 18:30 Dose: 50 mg Diphenhydramine HCl (Benadryl) 50 mg IVPUSH Q4H [facility] Last Admin: 10/22/17 10:23 Dose: 50 mg Diphenhydramine HCl (Benadryl) Confirm Administered Dose 50 mg .ROUTE .STK-MED ONE Stop: 10/19/17 19:35 Last Admin: 10/19/17 19:42 Dose: Not Given Docusate Sodium (Colace 50 Mg/5 Ml Liquid) 200 mg PO ONETIME ONE Stop: 10/21/17 09:20 Last Admin: 10/21/17 09:42 Dose: Not Given Docusate Sodium (Colace) 200 mg PO ONETIME ONE Stop: 10/21/17 09:46 Last Admin: 10/21/17 09:45 Dose: 200 mg Doxepin HCl (Sinequan) 25 mg PO ONETIME ONE Stop: 10/19/17 16:55 Last Admin: 10/19/17 18:03 Dose: 25 mg Doxepin HCl (Sinequan) 25 mg PO ONETIME ONE Stop: 10/20/17 11:33 Last Admin: 10/20/17 12:19 Dose: 25 mg Doxepin HCl (Sinequan) 25 mg PO BEDTIME ONE Stop: 10/20/17 21:01 Last Admin: 10/20/17 20:36 Dose: 25 mg Epinephrine HCl (Adrenalin) 0.5 mg IM ONETIME ONE Stop: 10/19/17 06:51 Last Admin: 10/19/17 06:55 Dose: 0.5 mg Famotidine (Pepcid) 20 mg PO ONETIME ONE Stop: 10/19/17 07:07 Last Admin: 10/19/17 07:35 Dose: 20 mg Sodium Chloride (Normal Saline) 1,000 mls @ 999 mls/hr IV STAT ONE Stop: 10/19/17 07:46 Last Admin: 10/19/17 06:56 Dose: 999 mls/hr Lactated Ringer's (Ringers, Lactated) 1,000 mls @ 125 mls/hr IV ASDIRECTED [facility] Last Admin: 10/20/17 18:07 Dose: 125 mls/hr Lactated Ringer's (Ringers, Lactated) 1,000 mls @ 125 mls/hr IV ASDIRECTED [facility] Last Admin: 10/22/17 01:45 Dose: 125 mls/hr Insulin Aspart (Novolog) 0 unit SUBCUT ACBREAKFASTANDBED [facility]; Protocol Last Admin: 10/21/17 06:36 Dose: 2 units Insulin Glargine (Lantus Solostar) 12 units SUBCUT BEDTIME ONE Stop: 10/21/17 21:01 Last Admin: 10/21/17 22:56 Dose: 12 units Magnesium Citrate (Citrate Of Magnesia) 30 ml PO ONETIME ONE Stop: 10/21/17 09:21 Magnesium Citrate (Citrate Of Magnesia) 200 ml PO ONETIME ONE Stop: 10/21/17 09:22 Last Admin: 10/21/17 09:45 Dose: 200 ml Methylprednisolone Sodium Succinate (Solu-Medrol) 125 mg IVPUSH ONETIME ONE Stop: 10/19/17 06:54 Last Admin: 10/19/17 07:03 Dose: 125 mg Methylprednisolone Sodium Succinate (Solu-Medrol) 60 mg IVPUSH Q6H [facility] Last Admin: 10/19/17 16:26 Dose: 60 mg Methylprednisolone Sodium Succinate (Solu-Medrol) 125 mg IVPUSH ONETIME ONE Stop: 10/19/17 16:55 Last Admin: 10/19/17 17:23 Dose: Not Given Methylprednisolone Sodium Succinate (Solu-Medrol) 125 mg IVPUSH Q6H [facility] Last Admin: 10/21/17 07:54 Dose: 125 mg Methylprednisolone Sodium Succinate (Solu-Medrol) 60 mg IVPUSH Q6H [facility] Last Admin: 10/22/17 08:33 Dose: 60 mg Methylprednisolone Sodium Succinate (Solu-Medrol) 60 mg IVPUSH Q6H [facility] Ondansetron HCl (Zofran) Confirm Administered Dose 4 mg .ROUTE .STK-MED ONE Stop: 10/19/17 07:22 Last Admin: 10/19/17 07:28 Dose: Not Given Ondansetron HCl (Zofran) 4 mg IVPUSH ONETIME ONE Stop: 10/19/17 07:26 Last Admin: 10/19/17 07:30 Dose: 4 mg Venlafaxine HCl (Effexor Xr) 150 mg PO DAILY [facility] - Exam General: Reports: Alert, Oriented HEENT: Reports: Pupils Equal Neck: Reports: Supple, Trachea Midline Lungs: Reports: Clear to Auscultation, Normal Respiratory Effort Cardiovascular: Reports: Regular Rate, Regular Rhythm GI/Abdominal Exam: Normal Bowel Sounds, Soft, Non-Tender, No Organomegaly (Female) Exam: Normal External Exam Back Exam: Reports: Normal Inspection Extremities: Normal Inspection Skin: Reports: Warm, Dry Neurological: Reports: No New Focal Deficit Psy/Mental Status: Reports: Alert
== END 2017-10-23 14:10 | disposition home or self-care (01) | DRG 811 ==
LOC: MW.ED 06:40 → MW.MS 08:39 → MW.ICU 17:58 → OBSVTOIN 10-21 10:46 → MW.MS 10-21 12:06
PROVIDERS: ADMIT Internal Medicine; ATTEND Internal Medicine
DX: T88.6XXA Anaphylactic reaction due to adverse effect of correct drug or medicament properly administered, initial encounter (principal); L50.0 Allergic urticaria; E11.9 Type 2 diabetes mellitus without complications; I10 Essential (primary) hypertension; E78.00 Pure hypercholesterolemia, unspecified; F41.8 Other specified anxiety disorders; Z87.891 Personal history of nicotine dependence; Z79.899 Other long term (current) drug therapy; Z88.0 Allergy status to penicillin
CPT/HCPCS: 36415; 80048; 80053; 81001; 82962; 85025; 85027; 96361; 96372; 96374; 96375; 99284-25; A9270-GY; J0171; J1200; J1650; J1815-GY ×2; J2405; J2920; J2930; J7040; J7120

== ENCOUNTER 2024-10-21 14:37 | Emergency (ER) | payer MEDICARE, OTHER ==
[2024-10-21] MEDS: Ondansetron 4 MG Tab.DIS PO ONE (15:07)
[2024-10-21] MEDS: Cyclobenzaprine 10 MG Tab PO ONE (15:07)
[2024-10-21 16:40] VITALS: BP 129/68; PULSE 73
== END 2024-10-21 16:40 | disposition home or self-care (01) ==
LOC: MW.ED 14:37
DX: S16.1XXA Strain of muscle, fascia and tendon at neck level, initial encounter (principal); E78.00 Pure hypercholesterolemia, unspecified; E11.9 Type 2 diabetes mellitus without complications; Z88.8 Allergy status to other drugs, medicaments and biological substances; Z88.0 Allergy status to penicillin; Z88.2 Allergy status to sulfonamides; Z88.1 Allergy status to other antibiotic agents; Z79.899 Other long term (current) drug therapy; Z75.3 Unavailability and inaccessibility of health-care facilities; Z90.710 Acquired absence of both cervix and uterus; V43.52XA Car driver injured in collision with other type car in traffic accident, initial encounter
CPT/HCPCS: 72125; 72128; 82947; 99284; A9270